=== PATIENT | female | born 1955 | race Two or more races ===

== ENCOUNTER 2017-01-10 15:05 | Inpatient (IN) | payer MEDICARE, OTHER ==
[~2017-01-10] VITALS: Ht 162.6 cm; Wt 120.3 kg
[~2017-01-10 15:05] MED LIST: /BACIOPOI OP; ACET65TA OR; AMLO10TA OR; CLON0.2T OR; COZA100T OR; PHEN 25 OR; VICO5TAB OR; ZANT150T OR
[2017-01-10] MEDS ORDERED: HYDR12.55 PO (15:25)
[2017-01-10] MEDS ORDERED: METO50TA7 PO ×2 (15:25→18:22)
[2017-01-10] MEDS ORDERED: ASPI325T PO ×2 (15:25→18:22)
[2017-01-10] MEDS ORDERED: FOLI1TAB4 PO ×2 (15:25→18:22)
[2017-01-10] MEDS ORDERED: ASPIRIN 81 MG CHEW TABLET PO ONE (15:30)
[2017-01-10 15:48] LABS: BASO % 0.5 % (0.0-1.0); EOS # 0.2 K/mm3 (0.0-0.50); LARGE UNSTAINED CELL # 0.1 K/mm3 (0.0-0.4); LARGE UNSTAINED CELL % 1.3 % (0.0-4.0); LYMPH # 1.7 K/mm3 (1.5-4.5); MEAN CORPUSCULAR HEMOGLOBIN 15.6 pg (27.0-33.0); MEAN CORPUSCULAR VOLUME 59.9 fl (80.0-96.0); MONO # 0.4 K/mm3 (0.0-0.8); MONO % 5.4 % (0.0-5.0); NEUTROPHILS # 4.9 K/mm3 (1.8-7.7); NEUTROPHILS % 66.8 % (36.0-66.0); PLATELET COUNT, AUTOMATED 251 k/mm3 (150-450); WHITE BLOOD COUNT 7.4 K/mm3 (4.0-10.0)
[2017-01-10 15:52] LABS: ADD MORPHOLOGY? YES; INR 1.13
--- NOTE | 2017-01-10 16:09 | REP ---
Clinical: Chest pain. Comparison: 07/15/2010. Findings: Cardiomegaly. Mild interstitial edema and pulmonary vascular congestion cannot be excluded and should be correlated clinically. Trace basilar atelectasis. No definite effusion. No pneumothorax. Skeletal structures intact. Impression: Cardiomegaly. Cannot exclude interstitial edema/pulmonary vascular congestion. Minimal basilar atelectasis. Signed by Drew Lobo MD 01/10/2017 04:01 P
[2017-01-10 16:12] LABS: ALBUMIN 2.9 GM/DL (3.2-5.2); ALBUMIN/GLOBULIN RATIO 0.88 (1.00-1.93); ALKALINE PHOSPHATASE 66 U/L (45-117); ALT/SGPT 36 U/L (12-78); ANION GAP 8 MEQ/L (8-16); AST/SGOT 15 U/L (15-37); BILIRUBIN,DIRECT 0.2 MG/DL (0.0-0.2); BILIRUBIN,TOTAL 0.5 MG/DL (0.2-1.0); BLOOD UREA NITROGEN 11 MG/DL (7-18); CALCIUM LEVEL 8.1 MG/DL (8.8-10.2); CARBON DIOXIDE LEVEL 28 MEQ/L (21-32); CHLORIDE LEVEL 104 MEQ/L (98-107); CREATININE FOR GFR 0.62 MG/DL (0.55-1.02); FREE T4 1.27 NG/DL (0.76-1.46); GLOMERULAR FILTRATION RATE > 60.0 (>45); GLUCOSE, FASTING 112 MG/DL (80-110); POTASSIUM SERUM 3.9 MEQ/L (3.5-5.1); SODIUM LEVEL 140 MEQ/L (136-145); TOTAL PROTEIN 6.2 GM/DL (6.4-8.2)
[2017-01-10 16:22] LABS: ANISOCYTOSIS 2+; HYPOCHROMASIA 3+; MICROCYTOSIS 3+
[2017-01-10 16:25] LABS: POLYCHROMASIA 1+
--- NOTE | 2017-01-10 16:34 | REP ---
Duplex extremity venous ultrasound: Bilateral lower extremities. History: Swelling and dyspnea and chest pain. Question DVT. Findings: The deep veins are anechoic and fully compressible from the groin to the popliteal fossa in the right and left lower extremity. Color flow imaging is homogeneous. Spectral Doppler interrogation demonstrates intact respiratory variation in flow and normal manual augmentation of flow. There is no evidence of deep vein thrombosis. Impression: Negative bilateral lower extremity duplex venous ultrasound. No evidence of deep vein thrombosis. Signed by Leonard Murrell MD 01/10/2017 04:26 P
[2017-01-10 16:48] LABS: FERRITIN 5 NG/ML (8-252); PERCENT SATURATION 4.1 % (13.2-45.0); TOTAL IRON BINDING CAPACITY 413 UG/DL (250-450)
[2017-01-10 16:58] LABS: FOLATE 17.7 NG/ML; VITAMIN B12 LEVEL 539 PG/ML
[2017-01-10] MEDS: FUROSEMIDE 40 MG/4 ML VIAL (J1940) IV SCH (18:14)
[2017-01-10] MEDS ORDERED: ALBUTEROL 90 MCG/ACT 8GM HFA INHALER INH PRN (18:15)
[2017-01-10] MEDS ORDERED: AMLO10TA2 PO (18:21)
[2017-01-10] MEDS ORDERED: CLON0.2T PO (18:22)
[2017-01-10] MEDS ORDERED: HYDR25TAB PO (18:22)
[2017-01-10] MEDS ORDERED: RANI150T PO (18:22)
[2017-01-10] MEDS ORDERED: LOSA100T36 PO (18:22)
[2017-01-10 18:34] LABS: RETIC HEMOGLOBIN CONTENT CHr 18.3 PG (24-36); RETICULOCYTE ABSOLUTE ADVIA212 65 x10(9)/L (17-77)
--- NOTE | 2017-01-10 20:43 | HPE ---
DATE OF ADMISSION: 01/10/2017 PRIMARY CARE PHYSICIAN: Dr. Marquez Dorsey ATTENDING PHYSICIAN: Dr. Jose, hospitalist group. CHIEF COMPLAINT: Severe anemia, exertional chest pain, high-output congestive heart failure. 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 She had checked her stool for occult blood through pharmacy programs and when it was negative felt she did not need her iron. She presented to the emergency room with dyspnea on exertion that has been getting gradually worse over a period of time. 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 She presented to the emergency room for evaluation and was found to have a hemoglobin of 5.6. She has been chronically anemic, and her last hemoglobin was 8.7 with iron deficient indices April of 2013. She has not had any endoscopy. She has a history of hypertension. She is intermittently compliant with her medications. I get the sense she has been taking them more recently since blood pressure is under loose control. Most recent systolic blood pressure has been in 160 range. She has evidence by exam, lab, and x-ray of congestive heart failure today, probably high-output heart failure. Most recent echocardiogram was from 6 years ago. She was on Dr. Petersen's service June 2010. Echocardiogram showed left ventricular hypertrophy (LVH), 75% ejection fraction, dilated left atrium, 46 mm. She denied increased right-sided pressure 6 years ago. She does have symptoms consistent with sleep apnea and snoring and excessive somnolence as well as a body habitus consistent with sleep apnea. PAST MEDICAL HISTORY: 1. Shows hypertension for many years. 2. History of gastroesophageal reflux disease (GERD). 3. Some bronchospastic disease, for which she uses inhaler periodically. SURGICAL HISTORY: 1. Ventral hernia repair. 2. Two sections. 3. Left knee meniscal tear. 4. Repair of deviated septum. 5. She had acute renal failure in the context of incarcerated hernia, for which she was admitted in June 2010. Underwent surgery by Dr. Gutiérrez. Was in the hospital for a couple of weeks at that time. MEDICATIONS: Inpatient medicines are: - amlodipine 10 mg daily - aspirin 325 mg daily - clonidine 0.2 mg twice a day - folic acid 1 mg daily - hydrochlorothiazide 12.5 mg daily - losartan 100 mg daily - metoprolol 50 mg daily - Zantac 150 mg as needed ALLERGIES: PENICILLIN. FAMILY HISTORY: Mother had hypertension, diabetes. Her brother of, it sounds, like cardiomyopathy. REVIEW OF SYSTEMS: As above. No epistaxis, rectal bleeding, urinary bleeding, vaginal bleeding. Denies palpitations, syncope. Has sleep apnea symptoms of excessive somnolence and loud snoring. PHYSICAL EXAMINATION: 159/77, pulse 58, respirations 18, 100% oxygen saturation on room air. GENERAL APPEARANCE: Lying in bed. No distress. Pupils equal, round, and reactive to light. Tympanic membranes and oropharynx benign. NECK: No masses. Thyroid non-palpable. Thick neck. Narrow airway. LUNGS: Rales, both bases. HEART: Regular rate and rhythm with a 1/6 systolic ejection murmur. Bradycardic. ABDOMEN: Soft, nontender. No masses. Stool heme negative. EXTREMITIES: Showed 1-2+ peripheral edema. No clubbing or cyanosis. Moves arms and legs with equal strength. LABORATORY DATA: Hemoglobin 5.6, MCV of 59. RDW is widened. Platelets 251, white count 7.4. Sodium 140, potassium 3.9, BUN 11, creatinine 0.6, glucose 112. Ferritin low at 5. Percent saturation low at 4.1. Troponin was low. BNP mildly elevated at 232. Albumin low 2.9. B12, folate, TSH, free T4 all normal. Telemetry in the emergency room showed nonsustained ventricular tachycardia of approximately 10 beats, asymptomatic. IMPRESSION: Severe anemia, iron deficient. Looks like very noncompliant with supplemental iron and presumed occult blood loss. PLAN: 1. She will admitted to the progressive care unit (PCU), transfused 2 units packed red blood cells. Repeat complete blood count (CBC) in the morning. She will probably need more blood in the morning. I strongly encouraged her to pursue upper and lower endoscopy either during this admission or as an outpatient for presumed gastrointestinal or chronic gastrointestinal (GI) iron loss. 2. High-output congestive heart failure, probably from the anemia. Echocardiogram has been ordered. Intravenous (IV) Lasix on sliding scale to maintain a net diuresis of 1200 mL per day. She looks like she has about 3 or 4 liters net that she needs to diurese. Daily labs have been ordered. Magnesium has been ordered tonight. Follow by magnesium tomorrow as well. 3. Nonsustained ventricular tachycardia. She is bradycardic, which is unusual considering the degree of her anemia. Repeat cardiac enzymes have been ordered. Telemetry has been ordered. Repeat EKG in the morning. Followup magnesium has been ordered. 4. Probably sleep apnea. Nocturnal oximetry ordered. Outpatient workup advised. Check right-sided pressures pending echocardiogram. 5. Possible diabetes. She has "borderline diabetes." Has morbid obesity. Hemoglobin A1c ordered. 6. Hypertension, noncompliant with her usual medications. She is a bit bradycardic. Need to be cautious with a beta martínez dosage as well as the clonidine, which can induce bradycardia. She has a relatively high dose angiotensin receptor martínez (ARB) medication. Thiazide is held in order to give her intravenous Lasix. Consideration given as an outpatient to referral to hypertension specialist. 7. Iron deficiency. Oral iron has been ordered with vitamin C to enhance absorption. I strongly encourage her to pursue upper and lower endoscopy to look for source of GI blood loss. 8. Chest pain, probably from severe anemia, unlikely ischemic heart disease. Enzymes have been ordered. Echocardiogram has been ordered. May benefit from outpatient stress test.
[2017-01-10 20:50] VITALS: BP 198/97
[2017-01-10] MEDS: METOPROLOL TART 25 MG TABLET PO SCH (21:00)
[2017-01-10 21:05] VITALS: BP 178/73
[2017-01-10] MEDS: cloNIDine 0.1 MG TAB PO SCH (21:39)
[2017-01-10] MEDS: ASCORBIC ACID 500 MG TAB PO SCH (21:39)
[2017-01-10] MEDS: FERROUS SULFATE 325MG TAB PO SCH (21:39)
[2017-01-10 21:50] VITALS: BP 176/80
[2017-01-10 22:50] VITALS: BP 174/82
[2017-01-10 23:49] VITALS: BP 168/80
[2017-01-11] VITALS (13 sets, daily range): BP systolic 142–196; BP diastolic 74–104
[2017-01-11] MEDS: FUROSEMIDE 40 MG/4 ML VIAL (J1940) IV SCH ×4 (00:17→18:00)
--- NOTE | 2017-01-11 07:50 | ECGEPIP ---
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
[2017-01-11 08:17] LABS: MEAN CORPUSCULAR HEMOGLOBIN 18.1 pg (27.0-33.0); MEAN CORPUSCULAR HGB CONC 28.7 g/dl (32.0-36.5); RED CELL DISTRIBUTION WIDTH 21.1 % (11.5-14.5); WHITE BLOOD COUNT 6.8 K/mm3 (4.0-10.0)
[2017-01-11 08:31] LABS: ALBUMIN/GLOBULIN RATIO 0.94 (1.00-1.93); ALKALINE PHOSPHATASE 70 U/L (45-117); ALT/SGPT 32 U/L (12-78); ANION GAP 8 MEQ/L (8-16); AST/SGOT 13 U/L (15-37); BLOOD UREA NITROGEN 10 MG/DL (7-18); CALCIUM LEVEL 8.9 MG/DL (8.8-10.2); CARBON DIOXIDE LEVEL 33 MEQ/L (21-32); CHLORIDE LEVEL 103 MEQ/L (98-107); CREATININE FOR GFR 0.69 MG/DL (0.55-1.02); GLOMERULAR FILTRATION RATE > 60.0 (>45); GLUCOSE, FASTING 124 MG/DL (80-110); POTASSIUM SERUM 3.5 MEQ/L (3.5-5.1); SODIUM LEVEL 144 MEQ/L (136-145); TOTAL PROTEIN 6.2 GM/DL (6.4-8.2)
[2017-01-11 08:33] LABS: ANION GAP 7 MEQ/L (8-16); BLOOD UREA NITROGEN 10 MG/DL (7-18); CALCIUM LEVEL 8.3 MG/DL (8.8-10.2); CARBON DIOXIDE LEVEL 33 MEQ/L (21-32); CHLORIDE LEVEL 102 MEQ/L (98-107); GLOMERULAR FILTRATION RATE > 60.0 (>45); GLUCOSE, FASTING 122 MG/DL (80-110); MAGNESIUM LEVEL 1.7 MG/DL (1.8-2.4); POTASSIUM SERUM 3.3 MEQ/L (3.5-5.1); SODIUM LEVEL 142 MEQ/L (136-145)
[2017-01-11] MEDS: FOLIC ACID 1 MG TAB PO SCH (08:44)
[2017-01-11] MEDS: FERROUS SULFATE 325MG TAB PO SCH ×2 (08:45→20:02)
[2017-01-11] MEDS: cloNIDine 0.1 MG TAB PO SCH ×2 (08:45→20:02)
[2017-01-11] MEDS: SENOKOT S TAB PO SCH ×2 (08:45→20:03)
[2017-01-11] MEDS: ASCORBIC ACID 500 MG TAB PO SCH ×2 (08:46→20:40)
[2017-01-11] MEDS: LOSARTAN 50 MG TAB PO SCH (08:46)
[2017-01-11] MEDS: ASPIRIN ENTERIC 325 MG TAB PO SCH (08:46)
[2017-01-11] MEDS ORDERED: POTASSIUM CHLORIDE 10 MEQ SR TABLET PO ONE (09:00)
[2017-01-11] MEDS ORDERED: MAG SULF 1GM/100ML (MAG RUN) 1 GM in APPROPRIATE DILUENT 1 EA IV ONE (09:00)
[2017-01-11] MEDS ORDERED: amLODIPine 10 MG TAB PO SCH (09:00)
[2017-01-11] MEDS: METOPROLOL TART 25 MG TABLET PO SCH ×2 (09:00→20:03)
[2017-01-11] MEDS ORDERED: ENOXAPARIN 40 MG/0.4 ML SYRINGE (J1650) SC SCH (09:00)
[2017-01-11 09:03] LABS: CHOLESTEROL LEVEL 112 MG/DL (<200); TRIGLYCERIDES LEVEL 97 MG/DL (<150)
[2017-01-11] MEDS ORDERED: hydrALAZINE INJ 20 MG/ML VIAL IV ONE (09:15)
[2017-01-11 09:19] LABS: REASON FOR REVIEW COMPREHENSIVE REVIEW
--- NOTE | 2017-01-11 12:56 | ECGEPIP ---
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
--- NOTE | 2017-01-11 14:34 | IPNPDOC ---
Date Seen The patient was seen on 01/11/17. Progress Note SUBJECTIVE: Patient is a 61-year-old female with anemia and chest pain. She is evaluated at bedside this morning. She denies hematemesis, hemoptysis, melena, hematochezia. She reports bleeding from her teeth secondary to poor dentition, but possibly not enough to cause a hemoglobin of 5.6. Complains of some low back pain which she attributes to laying on the ED stretcher. Will order a heating pad. She does not appear to complain of any further shortness of breath and is able to communicate in full sentences. OBJECTIVE PHYSICAL EXAMINATION: VITAL SIGNS: Please see below. GENERAL: Obese female, well nourished, well developed, appears stated age, no acute distress HEENT: Atraumatic, normocephalic, PERRL, EOMI, oral mucosa appears pink and moist, dentition in poor condition, nasal septum appears midline, nares are patent CARDIOVASCULAR: Regular rate and rhythm, normal S1 and S2, no murmur, rub, click RESPIRATORY: Clear to auscultation bilaterally, adequate inspiratory and expiratory airway excursion, no wheeze, rhonchi, crackles ABDOMINAL: Obese, soft, non-tender, non-distended, bowel sounds appreciated EXTREMITIES: +1 pitting edema appreciated in the bilateral lower extremities, peripheral pulses appreciated, equal, symmetrical, +2/4 NEUROLOGICAL: CN II-XII grossly intact PSYCHOLOGICAL: Alert and conversant, pleasant LABORATORY DATA: Please see below. MICROBIOLOGY: Please see below. DVT prophylaxis ordered?: TEDs, sequentials, knee high compression ASSESSMENT AND PLAN: This is a 61-year-old female with symptomatic anemia. PROBLEMS: 1. Symptomatic anemia: No current source of bleeding identified. Stool for occult blood has been ordered. Transfused 4 units of PRBC. Iron studies indicate iron deficiency anemia. Ferrous sulfate has been added to patient's medication regimen. Consulted general surgery. Peripheral smear indicates "post-transfusion sample. Still shows severe iron-deficiency anemia with increase reticulocytes count and rare nucleated RBCs, worrisome for occult blood loss as a cause of her anemia. WBC morphology is within normal limits. Clinical correlation and work up is necessary." 2. Uncontrolled hypertension: Patient on Amlodipine 10mg twice a day, Hydralazine 50mg three times a day, and Losartan 100mg daily. Obtaining renal ultrasound. 3. Bradycardia: Patient on Metoprolol and Clonidine for blood pressure. Medications have hold parameters in place for a SBP < 110 and/or HR < 60. EKG shows bradycardia. 4. Hypokalemia: Replenishment provided. 5. Hypomagnesemia: Replenishment provided. 6. Chest pain: Cardiac markers have thus far been negative. 7. Congestive heart failure: BNP within optimal range. Obtaining echocardiogram. Administering Lasix for a net negative balance of 1200cc/day. 8. Probable sleep apnea: Nocturnal pulse oximetry ordered. Could consider out- patient follow-up. Echocardiogram pending. 9. Possible diabetes: Ac1 6.1. DISPOSITION: Admit to the PCU. Obtain renal ultrasound. Obtaining stool for occult blood. Consider general surgery consult for evaluation of symptomatic anemia.. VS, I&O, 24H, Fishbone Vital Signs/I&O Vital Signs Date Time Temp Pulse Resp B/P (MAP) Pulse Ox O2 Delivery O2 Flow Rate FiO2 01/11/17 11:09 196/96 (129) 01/11/17 09:00 55 01/11/17 06:00 98.1 18 95 Room Air I&O- Last 24 Hours up to 6 AM 01/11/17 06:00 Intake Total 1775 ml Output Total 3200 ml Balance -1425 ml Laboratory Data 24H LABS Laboratory Tests 2 01/10/17 15:37: White Blood Count 7.4, Red Blood Count 3.59L, Hemoglobin 5.6*L, Hematocrit 21.5L , Mean Corpuscular Volume 59.9L, Mean Corpuscular Hemoglobin 15.6L, Mean Corpuscular Hemoglobin Concent 26.0L, Red Cell Distribution Width 18.0H, Platelet Count 251, Neutrophils (%) (Auto) 66.8H, Lymphocytes (%) (Auto) 23.0L, Monocytes (%) (Auto) 5.4H, Eosinophils (%) (Auto) 3.0, Basophils (%) (Auto) 0.5 , Neutrophils # (Auto) 4.9, Lymphocytes # (Auto) 1.7, Monocytes # (Auto) 0.4, Eosinophils # (Auto) 0.2, Basophils # (Auto) 0.0, Large Unclassified Cells % 1.3 , Large Unclassified Cells # 0.1, Platelet Estimate NORMAL, Polychromasia 1+, Hypochromasia 3+, Anisocytosis 2+, Microcytosis 3+, Macrocytosis 1+, Absolute Reticulocyte Count 65, Percent Reticulocyte Count 1.80H, Reticulocyte Hgb Content (CHr) 18.3L, Prothrombin Time 14.7H, Prothromb Time International Ratio 1.13, Anion Gap 8, Glomerular Filtration Rate > 60.0, Calcium Level 8.1L, Iron Level 17L, Total Iron Binding Capacity 413, Transferrin % Saturation 4.1L, Ferritin 5L, Aspartate Amino Transf (AST/SGOT) 15, Alanine Aminotransferase (ALT /SGPT) 36, Alkaline Phosphatase 66, Total Bilirubin 0.5, Direct Bilirubin 0.2, Total Creatine Kinase 54, Creatine Kinase MB 1.9, Creatine Kinase MB Relative Index 3.51, Troponin I 0.02, B-Type Natriuretic Peptide 232H, Total Protein 6.2L , Albumin 2.9L, Albumin/Globulin Ratio 0.88L, Vitamin B12 Level 539, Folate 17.7 , Thyroid Stimulating Hormone (TSH) 3.490, Free Thyroxine 1.27 01/10/17 18:15: Estimated Mean Plasma Glucose 128H, Hemoglobin A1c 6.1 01/10/17 23:53: Total Creatine Kinase 50, Creatine Kinase MB 1.6, Creatine Kinase MB Relative Index 3.20, Troponin I < 0.02 01/11/17 07:52: Anion Gap 8, Glomerular Filtration Rate > 60.0, Calcium Level 8.9, Aspartate Amino Transf (AST/SGOT) 13L, Alanine Aminotransferase (ALT/SGPT) 32, Alkaline Phosphatase 70, Total Bilirubin 1.0#, Total Creatine Kinase 48, Creatine Kinase MB 1.2, Creatine Kinase MB Relative Index 2.50, Troponin I 0.02, Total Protein 6.2L, Albumin 3.0L, Albumin/Globulin Ratio 0.94L, Differential Slide Review Report, Differential Pathologist's Review COMPREHENSIVE REVIEW, Peripheral Blood Smear Path Consult PERIPHERAL SMEAR, Blood Urea Nitrogen 10, Creatinine 0.69, Sodium Level 144, Potassium Level 3.5, Chloride Level 103, Carbon Dioxide Level 33H, Magnesium Level 1.7L, Triglycerides Level 97, LDL Cholesterol 62.6, Total Cholesterol 112, Non-HDL Cholesterol (LDL + VLDL) 82, Total HDL Cholesterol 30L, Cholesterol/HDL Ratio 3.733 01/11/17 12:09: Total Creatine Kinase 52, Creatine Kinase MB 1.2, Creatine Kinase MB Relative Index 2.30, Troponin I 0.02 CBC/BMP Laboratory Tests 01/10/17 15:37 Red Blood Count 3.59 L, Mean Corpuscular Volume 59.9 L, Mean Corpuscular Hemoglobin 15.6 L, Mean Corpuscular Hemoglobin Concent 26.0 L, Red Cell Distribution Width 18.0 H, Neutrophils (%) (Auto) 66.8 H, Lymphocytes (%) (Auto ) 23.0 L, Monocytes (%) (Auto) 5.4 H, Eosinophils (%) (Auto) 3.0, Basophils (%) (Auto) 0.5, Neutrophils # (Auto) 4.9, Lymphocytes # (Auto) 1.7, Monocytes # ( Auto) 0.4, Eosinophils # (Auto) 0.2, Basophils # (Auto) 0.0 01/11/17 07:52 Red Blood Count 4.05, Mean Corpuscular Volume 63.0 L, Mean Corpuscular Hemoglobin 18.1 L, Mean Corpuscular Hemoglobin Concent 28.7 L, Red Cell Distribution Width 21.1 H, Calcium Level 8.9, Aspartate Amino Transf (AST/SGOT) 13 L, Alanine Aminotransferase (ALT/SGPT) 32, Alkaline Phosphatase 70, Total Bilirubin 1.0 #, Total Protein 6.2 L, Albumin 3.0 L, Total Creatine Kinase 48 01/11/17 12:09 GME ATTESTATION GME ATTESTATION My preceptor for this patient encounter was physically present in the building during the encounter and was fully available. As needed, all aspects of the patient interview, examination, medical decision making process, and medical care plan development were reviewed and approved by the preceptor. Preceptor is aware and concurs with the plan as stated in the body of this note and will attest to such by his/her cosignature. ATTENDING NOTE I have both independently examined this patient as well as reviewed the note. I have discussed in detail with the resident the findings and plan of treatment as documented in the residents note. I will continue to follow the patient and offer further guidance to the patients care as necessary during this hospital stay. MARCELINO Velez MD Jan 11, 2017 14:34 DAHLIA MYERS MD Jan 28, 2017 18:47
[2017-01-11] MEDS: **hydrALAZINE** 50 MG TAB PO SCH ×2 (15:57→20:04)
[2017-01-11] MEDS ORDERED: **hydrALAZINE** 50 MG TAB PO SCH (16:00)
[2017-01-11] MEDS: amLODIPine 10 MG TAB PO SCH (20:03)
[2017-01-11] MEDS: ACETAMINOPHEN 325 MG TAB PO PRN (20:40)
[2017-01-11] MEDS ORDERED: CYCLOBENZAPRINE 5MG TABLET PO ONE (21:00)
[2017-01-11] MEDS ORDERED: FAMOTIDINE 20 MG TAB PO PRN (21:30)
[2017-01-12 00:20] VITALS: BP 182/90
[2017-01-12] MEDS: FUROSEMIDE 40 MG/4 ML VIAL (J1940) IV SCH ×4 (00:45→18:16)
[2017-01-12] MEDS: ACETAMINOPHEN 325 MG TAB PO PRN ×2 (05:29→21:19)
[2017-01-12 05:30] LABS: MEAN CORPUSCULAR HEMOGLOBIN 19.8 pg (27.0-33.0); MEAN CORPUSCULAR HGB CONC 29.4 g/dl (32.0-36.5); MEAN CORPUSCULAR VOLUME 67.3 fl (80.0-96.0); RED CELL DISTRIBUTION WIDTH 23.4 % (11.5-14.5); WHITE BLOOD COUNT 9.2 K/mm3 (4.0-10.0)
[2017-01-12 05:52] LABS: ANION GAP 11 MEQ/L (8-16); BLOOD UREA NITROGEN 10 MG/DL (7-18); CALCIUM LEVEL 8.9 MG/DL (8.8-10.2); CARBON DIOXIDE LEVEL 31 MEQ/L (21-32); CHLORIDE LEVEL 104 MEQ/L (98-107); GLOMERULAR FILTRATION RATE > 60.0 (>45); GLUCOSE, FASTING 115 MG/DL (80-110); POTASSIUM SERUM 3.4 MEQ/L (3.5-5.1); SODIUM LEVEL 146 MEQ/L (136-145)
[2017-01-12 06:03] VITALS: BP 188/92
[2017-01-12] MEDS: **hydrALAZINE** 50 MG TAB PO SCH ×3 (06:14→21:19)
[2017-01-12] MEDS ORDERED: POTASSIUM CHLORIDE 10 MEQ SR TABLET PO ONE (06:45)
[2017-01-12 07:40] LABS: MAGNESIUM LEVEL 1.9 MG/DL (1.8-2.4)
[2017-01-12 09:00] VITALS: BP 184/84
[2017-01-12] MEDS: LOSARTAN 50 MG TAB PO SCH (09:45)
[2017-01-12] MEDS: ASPIRIN ENTERIC 325 MG TAB PO SCH (09:45)
[2017-01-12] MEDS: ISOSORBIDE DIN. (ISORDIL) 30 MG TAB PO SCH ×2 (09:45→17:30)
[2017-01-12] MEDS: amLODIPine 10 MG TAB PO SCH ×2 (09:45→21:18)
[2017-01-12] MEDS: FERROUS SULFATE 325MG TAB PO SCH ×2 (09:46→21:20)
[2017-01-12] MEDS: cloNIDine 0.1 MG TAB PO SCH ×2 (09:46→21:22)
[2017-01-12] MEDS: ASCORBIC ACID 500 MG TAB PO SCH ×2 (09:46→21:20)
[2017-01-12] MEDS: FOLIC ACID 1 MG TAB PO SCH (09:46)
[2017-01-12] MEDS: METOPROLOL TART 25 MG TABLET PO SCH ×2 (09:46→21:21)
[2017-01-12] MEDS: SENOKOT S TAB PO SCH ×2 (09:47→21:20)
--- NOTE | 2017-01-12 10:35 | IPNPDOC ---
Date Seen The patient was seen on 01/12/17. Progress Note SUBJECTIVE: Patient is a 61-year-old female with anemia and chest pain. Patient is evaluated at bedside this morning. She had just returned from her renal ultrasound. She continues to denies any rico blood loss. Admits to improving chest pain. Patient will be going for a possible EGD and colonoscopy with general surgery on Saturday. Patient is not looking forward to the preparation for those procedures. Continues to experience low back muscle spasms. Reports that the one-time dose of Flexeril helped alleviate the spasm. Have placed a PRN order for Flexeril 5mg every 6 hours. Patient's blood pressure has been somewhat difficult to control. She denies difficulties at home. Have added Isosorbide dinitrate 30mg every 8 hours. OBJECTIVE PHYSICAL EXAMINATION: VITAL SIGNS: Please see below. GENERAL: Morbidly obese female, well nourished, well developed, appears stated age, no acute distress HEENT: Atraumatic, normocephalic, PERRL, EOMI, oral mucosa appears pink and moist, nasal septum appears midline, nares are patent CARDIOVASCULAR: Regular rate and rhythm, normal S1 and S2, no murmur, rub, click , no reproducible pain with anterior chest wall palpation RESPIRATORY: Clear to auscultation bilaterally, adequate inspiratory and expiratory airway excursion, no wheeze, rhonchi, crackles ABDOMINAL: Obese, soft, non-tender, non-distended, bowel sounds appreciated EXTREMITIES: +1 pitting edema appreciated in bilateral lower extremities midway up the leg, peripheral pulses appreciated bilaterally, equal, symmetrical, +2/4 NEUROLOGICAL: CN II-XII grossly intact PSYCHOLOGICAL: Alert, conversant, pleasant LABORATORY DATA: Please see below. MICROBIOLOGY: Please see below. DVT prophylaxis ordered?: TEDs, sequentials, knee high compression. ASSESSMENT AND PLAN: This is a 61-year-old female with chest pain and anemia. PROBLEMS: 1. Acute low back muscle spasms: Attained symptomatic relief with Flexeril 5mg. Have initiated a PRN order. 2. Symptomatic anemia: H/H has improved since transfusing 4 units of PRBC. Stool is positive for occult blood. No rico blood loss appreciated by patient. Consulted general surgery. Possible EGD and colonoscopy on Saturday. Remains on Ferrous Sulfate for iron deficiency anemia. 3. Chest pain: Improving. Possibly related to symptomatic anemia. Cardiac markers are negative. 4. Hypokalemia: Replenished. Obtained magnesium level which was within optimal range. 5. Uncontrolled hypertension: Patient remains on Clonidine and Metoprolol with hold parameters of SBP < 110 and/or HR < 60. Patient is also on Amlodipine 10mg twice a day, Hydralazine 50mg three times a day, Losartan 100mg daily, and have initiated Isosorbide dinitrate 30mg every 8 hours. Hopeful to achieve a more controlled blood pressure with the regimen. Will continue to monitor. 6. Congestive heart failure: Remains on Lasix 40mg every six hours for a net negative balance of 1200cc/day. Echocardiogram is pending. DISPOSITION: Control blood pressure. Consulted general surgery for possible EGD and colonoscopy on Saturday. Anemia has improved. VS, I&O, [facility] Sign[facility]/I&O Vital Signs Date Time Temp Pulse Resp B/P (MAP) Pulse Ox O2 Delivery O2 Flow Rate FiO2 01/12/17 09:46 184/84 01/12/17 09:46 66 01/12/17 09:00 99.1 18 94 Room Air I&O- Last 24 Hours up to 6 AM 01/12/17 06:00 Intake Total 1520 ml Output Total 5475 ml Balance -3955 ml Laboratory Data 24H LABS Laboratory Tests 2 01/11/17 12:09: Total Creatine Kinase 52, Creatine Kinase MB 1.2, Creatine Kinase MB Relative Index 2.30, Troponin I 0.02 01/11/17 21:00: Total Creatine Kinase 51, Creatine Kinase MB 1.2, Creatine Kinase MB Relative Index 2.35, Troponin I 0.02 01/12/17 04:48: Anion Gap 11, Glomerular Filtration Rate > 60.0, Blood Urea Nitrogen 10, Creatinine 0.60, Sodium Level 146H, Potassium Level 3.4L, Chloride Level 104, Carbon Dioxide Level 31, Calcium Level 8.9, Magnesium Level 1.9 CBC/BMP Laboratory Tests 01/11/17 12:09 01/11/17 16:43 01/12/17 04:48 Red Blood Count 4.80, Mean Corpuscular Volume 67.3 L, Mean Corpuscular Hemoglobin 19.8 L, Mean Corpuscular Hemoglobin Concent 29.4 L, Red Cell Distribution Width 23.4 H, Calcium Level 8.9 Microbiology Microbiology 01/11/17 Stool Occult Blood (RADHA) - Final, Complete GME ATTESTATION GME ATTESTATION My preceptor for this patient encounter was physically present in the building during the encounter and was fully available. As needed, all aspects of the patient interview, examination, medical decision making process, and medical care plan development were reviewed and approved by the preceptor. Preceptor is aware and concurs with the plan as stated in the body of this note and will attest to such by his/her cosignature. ATTENDING NOTE I have both independently examined this patient as well as reviewed the note. I have discussed in detail with the resident the findings and plan of treatment as documented in the residents note. I will continue to follow the patient and offer further guidance to the patients care as necessary during this hospital stay. MARCELINO Velez MD-I Jan 12, 2017 10:34 DAHLIA MYERS MD Jan 28, 2017 18:49
[2017-01-12 12:00] VITALS: BP 178/80
--- NOTE | 2017-01-12 12:30 | REP ---
Clinical: Hypertension. Technique: Lovell scale and color Doppler evaluation of the kidneys and renal vasculature using curved array transducer. Findings: The bilateral kidneys are relatively normal in reniform shape, size and echogenicity and without nephrolithiasis, perinephric fluid or mass lesion. Right kidney measures 12.4 x 5.3 x 6.2 cm and includes 1.6 x 1.1 x 1.7 cm parapelvic cyst. Left kidney measures 12.3 x 5.3 x 7.1 cm with mild hydronephrosis suggested and possible parapelvic cyst. Bladder is incompletely distended and grossly normal by current evaluation. Color Doppler evaluation of the renal vasculature demonstrates normal arterial wave patterns, velocities, renal aortic ratios with minimally elevated resistive indices and acceleration times of the intra renal arteries. Renal vein is patent. Right Kidney: Peak arterial velocity: 81.1 cm/sec . Renal aortic ratio: 1.1 . Resistive indices: 0.77 - 0.81 . Acceleration times: 0.095 - 0.12 . Left kidney: Peak arterial velocity: 105.2 cm/sec . Renal aortic ratio: 1.5 . Resistive indices: 0.73 - 0.85 . Acceleration times: 0.066 - 0.13 . Impression: 1. Kidneys demonstrate a 1.7 cm right renal cyst and suspected mild left renal hydronephrosis. 2. No definite, direct evidence for renal arterial stenosis. Elevation of the intrarenal resistive indices and acceleration times are nonspecific findings which may warrant further investigation including nuclear medicine renal function testing. Signed by Drew Lobo MD 01/12/2017 12:22 P
[2017-01-12 16:00] VITALS: BP 138/80
[2017-01-12 20:39] VITALS: BP 162/84
[2017-01-13] VITALS (7 sets, daily range): BP systolic 121–180; BP diastolic 60–102
[2017-01-13] MEDS: FUROSEMIDE 40 MG/4 ML VIAL (J1940) IV SCH ×4 (00:21→16:53)
[2017-01-13] MEDS: ACETAMINOPHEN 325 MG TAB PO PRN ×2 (01:34→05:43)
[2017-01-13] MEDS: ISOSORBIDE DIN. (ISORDIL) 30 MG TAB PO SCH ×3 (01:34→09:17)
[2017-01-13] MEDS: CYCLOBENZAPRINE 5MG TABLET PO PRN ×2 (05:41→22:04)
[2017-01-13 05:44] LABS: MEAN CORPUSCULAR HEMOGLOBIN 20.5 pg (27.0-33.0); MEAN CORPUSCULAR HGB CONC 30.6 g/dl (32.0-36.5); MEAN CORPUSCULAR VOLUME 66.9 fl (80.0-96.0); RED CELL DISTRIBUTION WIDTH 24.7 % (11.5-14.5); WHITE BLOOD COUNT 10.4 K/mm3 (4.0-10.0)
[2017-01-13 05:45] LABS: ANION GAP 8 MEQ/L (8-16); BLOOD UREA NITROGEN 13 MG/DL (7-18); CALCIUM LEVEL 8.9 MG/DL (8.8-10.2); CARBON DIOXIDE LEVEL 32 MEQ/L (21-32); CHLORIDE LEVEL 102 MEQ/L (98-107); CREATININE FOR GFR 0.61 MG/DL (0.55-1.02); GLOMERULAR FILTRATION RATE > 60.0 (>45); GLUCOSE, FASTING 132 MG/DL (80-110); POTASSIUM SERUM 3.5 MEQ/L (3.5-5.1); SODIUM LEVEL 142 MEQ/L (136-145)
[2017-01-13] MEDS ORDERED: POTASSIUM CHLORIDE 10 MEQ SR TABLET PO ONE (07:45)
[2017-01-13] MEDS: FOLIC ACID 1 MG TAB PO SCH (09:07)
[2017-01-13] MEDS: ASPIRIN ENTERIC 325 MG TAB PO SCH (09:07)
[2017-01-13] MEDS: cloNIDine 0.1 MG TAB PO SCH (09:07)
[2017-01-13] MEDS: amLODIPine 10 MG TAB PO SCH ×2 (09:08→20:23)
[2017-01-13] MEDS: LOSARTAN 50 MG TAB PO SCH (09:08)
[2017-01-13] MEDS: **hydrALAZINE** 50 MG TAB PO SCH ×3 (09:09→20:25)
[2017-01-13] MEDS: METOPROLOL TART 25 MG TABLET PO SCH ×2 (09:09→20:25)
[2017-01-13] MEDS: FERROUS SULFATE 325MG TAB PO SCH ×2 (09:09→20:24)
[2017-01-13] MEDS: SENOKOT S TAB PO SCH ×2 (09:09→20:26)
[2017-01-13] MEDS: ASCORBIC ACID 500 MG TAB PO SCH ×2 (09:09→20:21)
[2017-01-13] MEDS: ACETAMINOPHEN TAB 650MG DOSE (2X325MG) PO PRN ×2 (12:05→22:04)
--- NOTE | 2017-01-13 14:57 | ECHO ---
DATE: 01/13/2017 REFERRING PHYSICIAN: Dr. Lowell Mcclelland Study was performed 01/13/2017 for indication edema. Patient measures 63 inches and weighs 279 pounds. DIMENSIONS: IVS 1.5 LV 5.4 LVPW 1.4 LA 5.7 Aorta 3.9 Ascending aorta 3.7 RV 3.6 FINDINGS: The study is of rather difficult technical quality corresponding to patient's body habitus. Left ventricle is of normal size and systolic function, estimated ejection fraction (EF) 65-70%. Moderate left ventricle hypertrophy is present. Right ventricle does not appear enlarged but was poorly visualized. Left atrium is severely enlarged. Right atrium was poorly seen. Aortic valve is sclerotic, but it has preserved mobility. There are also mild degenerative abnormalities of mitral valve with mitral annular calcifications, but mobility of leaflet is preserved. Tricuspid and pulmonic valves appear grossly normal, but the visualization was poor. No pericardial effusion is noted. Inferior vena cava is normal size and appropriately collapses with respiration. Aortic root is normal. Aortic arch also appears normal. Abdominal aorta was not well seen. Doppler interrogation of aortic valve reveals no stenosis or insufficiency. There is also no significant mitral and tricuspid stenosis or insufficiency. Trace pulmonic insufficiency is seen. Mitral inflow pattern and tissue Doppler imaging of mitral annulus reveal grade 1 diastolic dysfunction. E prime velocities are 6.0 and 10.3 cm/s in septal and lateral mitral annulus, respectively. CONCLUSIONS: 1. Study is of fair technical quality corresponding to patient's body habitus. 2. Normal left ventricular (LV) size with moderate left ventricular hypertrophy (LVH) and preserved LV systolic function. Grade 1 diastolic dysfunction. 3. No hemodynamically significant valvular disease. 4. Probably normal central venous pressure. 5. Unable to estimate pulmonary artery pressure. COMMENTS: Subacute bacterial endocarditis (SBE) prophylaxis not recommended. Overall study most consistent with hypertensive heart disease. MTDD
--- NOTE | 2017-01-13 15:19 | IPN ---
DATE OF SERVICE: 01/13/2017 Patient reported headache after started on Isordil for blood pressure. Denies any chest pain, pressure, discomfort, fevers or chills, vision change, hearing change, nausea, vomiting. VITAL SIGNS: Temperature 98, pulse 61, respirations 17, blood pressure 154/82, pulse oximetry 97% on room air. LABORATORY: WBC 10.4, hemoglobin and hematocrit (H and H) 9.4/30.6, platelets 248. Chemistry; Sodium 142, potassium 3.5, chloride 102, bicarbonate 32, BUN 13, creatinine 0.61. GENERAL: Patient alert and oriented times three, morbidly obese, in no acute distress. HEENT: Normocephalic, atraumatic. Pupils equal, round, and reactive. CARDIAC: Regular rate, rhythm. Normal S1, S2. ABDOMEN: Soft and nontender. PULMONARY: Clear. Distant breath sounds. No wheeze, rales, or rhonchi. ABDOMEN: Is obese, soft, nontender. Positive bowel sounds. EXTREMITIES: Trace edema bilateral lower extremities. ASSESSMENT AND PLAN: This is a 61-year-old female patient with underlying medical history of chronic iron-deficiency anemia, hypertension, poorly controlled, bronchospastic disease, admitted with symptomatic anemia, chest pain, iron-deficiency anemia, fecal occult positive. PROBLEMS: 1. Symptomatic anemia with iron deficiency. Status post 4 units packed red blood cells (PRBCs) transfusion. Fecal occult positive. Last colonoscopy [address] Montague has been consulted for esophagogastroduodenoscopy (EGD)/colonoscopy on Saturday. Iron supplementation. 2. Musculoskeletal low back pain. Improved. Flexeril has been given. 3. Hypokalemia. Supplemented. Continue to monitor. 4. Uncontrolled hypertension. Clonidine 0.2 mg by mouth twice a day. Lopressor with holding parameter. Norvasc, hydralazine, losartan have been given. Isosorbide dinitrate has been discontinued given headache. Will monitor blood pressure. 4. Congestive heart failure. Continue Lasix for diuresis. 5. Deep venous thrombosis (DVT) prophylaxis. Sequential compression device. Encourage ambulation. Avoid pharmacological agents for anticoagulation given patient is fecal occult positive pending esophagogastroduodenoscopy (EGD)/colonoscopy. DISPOSITION: Pending EGD/colonoscopy. Encourage ambulation. Will give physical therapy.
[2017-01-13] MEDS ORDERED: MAGNESIUM CITRATE 300 ML BTL PO ONE (17:00)
[2017-01-13] MEDS ORDERED: GOLYTELY SOLN 4000 ML BTL PO ONE (20:00)
[2017-01-13] MEDS: cloNIDine 0.2 MG TAB PO SCH (20:23)
[2017-01-14] MEDS: FUROSEMIDE 40 MG/4 ML VIAL (J1940) IV SCH ×4 (00:42→17:29)
[2017-01-14] MEDS ORDERED: GOLYTELY SOLN 4000 ML BTL PO ONE (05:00)
[2017-01-14 05:27] LABS: MEAN CORPUSCULAR HEMOGLOBIN 20.2 pg (27.0-33.0); MEAN CORPUSCULAR HGB CONC 29.2 g/dl (32.0-36.5); MEAN CORPUSCULAR VOLUME 69.2 fl (80.0-96.0); WHITE BLOOD COUNT 8.7 K/mm3 (4.0-10.0)
[2017-01-14 05:33] VITALS: BP 202/104
[2017-01-14 05:47] LABS: ANION GAP 5 MEQ/L (8-16); BLOOD UREA NITROGEN 7 MG/DL (7-18); CALCIUM LEVEL 8.9 MG/DL (8.8-10.2); CARBON DIOXIDE LEVEL 35 MEQ/L (21-32); CHLORIDE LEVEL 101 MEQ/L (98-107); CREATININE FOR GFR 0.61 MG/DL (0.55-1.02); GLOMERULAR FILTRATION RATE > 60.0 (>45); GLUCOSE, FASTING 115 MG/DL (80-110); POTASSIUM SERUM 3.4 MEQ/L (3.5-5.1); SODIUM LEVEL 141 MEQ/L (136-145)
[2017-01-14 06:00] VITALS: BP 142/86
[2017-01-14 08:00] VITALS: BP 140/70
[2017-01-14] MEDS: SENOKOT S TAB PO SCH ×2 (09:00→20:33)
[2017-01-14] MEDS: FERROUS SULFATE 325MG TAB PO SCH ×2 (09:00→20:34)
[2017-01-14] MEDS: LOSARTAN 50 MG TAB PO SCH (09:38)
[2017-01-14] MEDS: **hydrALAZINE** 50 MG TAB PO SCH ×3 (09:38→20:34)
[2017-01-14] MEDS: amLODIPine 10 MG TAB PO SCH ×2 (09:38→20:35)
[2017-01-14] MEDS: METOPROLOL TART 25 MG TABLET PO SCH ×2 (09:39→20:36)
--- NOTE | 2017-01-14 09:40 | IPNPDOC ---
Date Seen The patient was seen on 01/14/17. Progress Note SUBJECTIVE: Patient is a 61 year-old female admitted on 01/10 with symptomatic anemia. Pt resting comfortably at the time of assessment. Patient is scheduled for a colonoscopy and EGD today. The patient has been NPO since midnight. Pt has no complaints this morning. Per nursing, pt had one episode of elevated BP this AM in the 200's systolic but patient denies having symptoms of high blood pressure. Denied headaches, light headiness, change in vision. Since then bp has been stable. OBJECTIVE PHYSICAL EXAMINATION: VITAL SIGNS: Please see below. GENERAL: Pleasant elderly lady sitting comfortable in no acute distress. CARDIOVASCULAR: S1 and S2 present. No rubs, murmurs, or gallops appreciated. RESPIRATORY: Clear to auscultate bilateral. no rhonchi, gallops or rubs noted. EXTREMITIES: 2+ edema up to mid calf on right. Left edema has improved. PSYCHOLOGICAL: appropriate affect LABORATORY DATA: Please see below. MICROBIOLOGY: Please see below. DVT prophylaxis ordered?: patient is ambulatory and avoiding anticoagulation due to positive fecal occult blood. Pending EGD/colonoscopy. ASSESSMENT AND PLAN: This is a 61 year-old female admitted with symptomatic anemia s/p transfusion 4 units of PRBC PROBLEMS: 1. Symptomatic Anemia: H/H stable. s/p 4 units of packed red blood cells transfusion.. Current H/H are stable. Dr. Montague will be performing the EGD and Colonoscopy today. Currently on iron supplementation. 2. Hypertension: Pt currently on Amlodipine 10 mg BID PO, Clonidine 0.2 mg BID PO, Hydralazine 50 mg TID PO, Losartan 100 mg Daily PO, and Metoprolol 25 mg BID PO. Pt was initially given Isosorbide dinitrate, however d/c due to headache. Blood pressure is currently stable, will continue to monitor. 3. Hypokalemia: Ordered Potassium Chloride 40 mEql one time for the evening with meal. Mg currently at 2.0, will continue to monitor . 4. Congestive Heart Failure: Echo on 01/13 showed left atrium enlargement, normal left ventricular size with moderate left ventricular hypertrophy (LVH) and preserved LV systolic function, estimated ejection fraction 65-70%. Grade 1 diastolic dysfunction. Peripheral edema is improving on physical exam. Will continue Lasix 40mg q6h for diuresis. 5. Back pain: no complaints this AM. Patient has Flexeril 5mg prn for spasms. 6. DVT prophylaxis: patient is ambulatory and avoiding anticoagulation due to positive fecal occult blood. Pending EGD/colonoscopy. 7. All PO medication but blood pressure medication to be held today because of patient NPO status, can resume medication once EGD and colonoscopy is completed. VS, I&O, 24H, Fishbone Vital Signs/I&O Vital Signs Date Time Temp Pulse Resp B/P (MAP) Pulse Ox O2 Delivery O2 Flow Rate FiO2 01/14/17 08:06 Room Air 01/14/17 08:00 99.0 69 18 140/70 (93) 97 I&O- Last 24 Hours up to 6 AM 01/14/17 06:00 Intake Total 1800 ml Output Total 3750 ml Balance -1950 ml Laboratory Data 24H LABS Laboratory Tests 2 01/14/17 04:49: Anion Gap 5L, Glomerular Filtration Rate > 60.0, Blood Urea Nitrogen 7, Creatinine 0.61, Sodium Level 141, Potassium Level 3.4L, Chloride Level 101, Carbon Dioxide Level 35H, Calcium Level 8.9, Magnesium Level 2.0 CBC/BMP Laboratory Tests 01/14/17 04:49 Red Blood Count 4.79, Mean Corpuscular Volume 69.2 L, Mean Corpuscular Hemoglobin 20.2 L, Mean Corpuscular Hemoglobin Concent 29.2 L, Red Cell Distribution Width 26.0 H, Calcium Level 8.9 Microbiology Microbiology 01/11/17 Stool Occult Blood (RADHA) - Final, Complete MARIANNE SNWO DO Jan 14, 2017 09:09
[2017-01-14] MEDS: cloNIDine 0.2 MG TAB PO SCH ×2 (10:44→20:35)
[2017-01-14] MEDS ORDERED: SLF 3 ML SYR IV PRN (10:45)
--- NOTE | 2017-01-14 10:49 | CR.PDOC ---
General Surgery Consultation Date of Consultation 01/13/17 History and Physical CONSULT REPORT FOR: Dr. Mami Jose REASON FOR CONSULTATION: symptomatic anemia for endoscopy HISTORY OF PRESENT ILLNESS: Ms. Dotson is 61 year old female admitted to the hospital for symptomatic anemia. She was complaining of shortness of breath, bilateral leg swelling and found to have a hemoglobin of 5.6. She has chronic iron deficiency anemia treated with iron which she had stopped on her own. She has never had a colonoscopy or upper endoscopy. She denies noting any blood on her stools, change in caliber of her stools, change in bowel habits. She denies any significant family history for colon cancer. PAST MEDICAL HISTORY: 1. anemia PAST SURGICAL HISTORY: INCLUDES: 1. incarcerated ventral hernia repair with small bowel resection 2. Repair of incarcerated recurrent ventral hernia 3. Left knee surgery 4. 2 sections PREVIOUS ANESTHESIA REACTIONS: none ALLERGIES: Please see below. FAMILY HISTORY: Denies significant family history of gi tract malignancy. HOME MEDICATIONS: Please see below. REVIEW OF SYSTEMS: GENERAL: Denies chills, reports weight gain, denies fevers or chills. HEENT: Denies blurred vision and double vision. Denies ear symptoms. Denies hoarseness. NECK: Denies any neck pain. CARDIOVASCULAR: Reports shortness of breath, easy fatigability, Swelling MUSCULOSKELETAL: Denies arthralgias, back pain and thrombophlebitis. SKIN: Denies rash. NEUROLOGIC: Denies headache, stroke and transient ischemic attack. PSYCHIATRIC: Denies anxiety and depression. ENDOCRINE: Denies thyroid disease. HEMATOLOGY/ONCOLOGY: Denies bleeding or clotting disorder. HEART: Reports some mild chest pain, dyspnea and effort PULMONARY: Denies chronic cough, and wheezing. GASTROINTESTINAL: Denies rectal bleeding, family history of colon cancer, constipation, diarrhea, dysphagia, heartburn and jaundice. GENITOURINARY: Denies dysuria, frequency, hematuria and nocturia. ENDOCRINE: Denies polydipsia, polyphagia, polyuria, heat or cold intolerance. INFECTIOUS: Denies any recent upper respiratory tract infection, UTI, need for use of antibiotics. NUTRITION: Reports good appetite. PHYSICAL EXAMINATION: VITALS SIGNS: Please see below. GENERAL APPEARANCE:Patient seen, laying in bed, awake, alert, and oriented. Comfortable, in no acute distress. SKIN: Warm and moist. HEENT: Normocephalic, atraumatic. [place] palpebral conjunctiva, anicteric sclerae. Lips and mucosa appear moist. NECK: Supple, no thyromegaly. No obvious jugular venous distention. LUNGS: Clear to auscultation bilaterally. No wheezing appreciated. HEART: No chest wall abnormalities. Regular rate and rhythm with no murmurs appreciated. ABDOMEN: Abdomen is , obese soft, nondistended . She appears to have recurrence of her ventral hernia on the upper abdomen but this is reducible. Nontender and palpation EXTREMITIES: Extremities have no deformities. No edema identified ANCILLARIES: . LABORATORY DATA: Please see below. IMAGING STUDIES: . IMPRESSION AND PLAN: . Symptomatic anemia Patient will be scheduled for upper endoscopy and colonoscopy during his admission. Plan the do a bowel prep tonight and endoscopy tomorrow. Details of the procedure, risks and benefits have been described to the patient and consent has been obtained. Vital Signs Vital Signs Date Time Temp Pulse Resp B/P (MAP) Pulse Ox O2 Delivery O2 Flow Rate FiO2 01/13/17 12:00 98.3 83 18 121/62 (81) 95 Room Air I&Os I&O- Last 24 Hours up to 6 AM 01/13/17 05:59 Intake Total 1560 ml Output Total 2300 ml Balance -740 ml Laboratory Data Labs 24H Laboratory Tests 2 01/13/17 05:07: Anion Gap 8, Glomerular Filtration Rate > 60.0, Blood Urea Nitrogen 13, Creatinine 0.61, Sodium Level 142, Potassium Level 3.5, Chloride Level 102, Carbon Dioxide Level 32, Calcium Level 8.9, Magnesium Level 2.0 CBC/BMP Laboratory Tests 01/13/17 05:07 Red Blood Count 4.57, Mean Corpuscular Volume 66.9 L, Mean Corpuscular Hemoglobin 20.5 L, Mean Corpuscular Hemoglobin Concent 30.6 L, Red Cell Distribution Width 24.7 H, Calcium Level 8.9 Microbiology Microbiology 01/11/17 Stool Occult Blood (RADHA) - Final, Complete Home Medications Scheduled Amlodipine Besylate (Amlodipine Besylate) 10 Mg Tab, 10 MG PO DAILY, (Reported) Aspirin (Aspirin) 325 Mg Tab, 325 MG PO DAILY, (Reported) Clonidine Hydrochloride (Clonidine HCl) 0.2 Mg Tab, 0.2 MG PO QHS, (Reported) Folic Acid (Folic Acid) 1 Mg Tab, 1 MG PO DAILY, (Reported) Hydrochlorothiazide (Hydrochlorothiazide) 25 Mg Tab, 25 MG PO DAILY, (Reported) Losartan Potassium (Losartan Potassium) 100 Mg Tab, 100 MG PO DAILY, (Reported) Metoprolol Tartrate (Metoprolol Tartrate) 50 Mg Tab, 50 MG PO DAILY, (Reported) Scheduled PRN Ranitidine HCl (Ranitidine HCl) 150 Mg Tab, 1 TAB PO DAILY PRN for HEARTBURN, ( Reported) Allergies Coded Allergies: Penicillins (Verified Allergy, Unknown, 01/10/17) Penicillins Cross Reactors (Verified Allergy, Unknown, 01/10/17) Exline (Verified Allergy, Unknown, 01/10/17) MONAE OTTO MD Jan 13, 2017 15:56
[2017-01-14 12:00] VITALS: BP 130/64
[2017-01-14] MEDS ORDERED: PROPOFOL 200 MG/20 ML VIAL As Ordered ONE ×2 (15:09→15:30)
[2017-01-14] MEDS ORDERED: LIDOCAINE 2% INJ 100 MG/5 ML SDV (FOR ANES.) As Ordered ONE (15:09)
[2017-01-14] MEDS ORDERED: fentaNYL 100 MCG/2 ML INJECTION (J3010) As Ordered ONE (15:09)
[2017-01-14] MEDS ORDERED: ePHEDrine SULFATE 25 MG/5 ML(5MG/ML) SYRINGE As Ordered ONE (15:26)
--- NOTE | 2017-01-14 15:53 | ROOR ---
Patient Name: Freda Cartwright Procedure Date: 01/14/2017 2:16 PM Date of : 1955 Age: 61 Gender: Female Note Status: Finalized Procedure: Upper GI endoscopy Indications: Iron deficiency anemia secondary to chronic blood loss, Iron deficiency anemia Providers: Marcellus Montague MD Referring MD: Marquez Dorsey MD Requesting Provider: Medicines: Monitored Anesthesia Care Complications: No immediate complications. Procedure: Pre-Anesthesia Assessment: - Prior to the procedure, a History and Physical was performed, and patient medications and allergies were reviewed. The patient is competent. The risks and benefits of the procedure and the sedation options and risks were discussed with the patient. All questions were answered and informed consent was obtained. Patient identification and proposed procedure were verified by the physician, the nurse and the title search manager in the procedure room. Mental Status Examination: alert and oriented. Airway Examination: normal oropharyngeal airway and neck mobility. Respiratory Examination: clear to auscultation. CV Examination: normal. Prophylactic Antibiotics: The patient does not require prophylactic antibiotics. Prior Anticoagulants: The patient has taken aspirin, last dose was 1 day prior to procedure. ASA Grade Assessment: III - A patient with severe systemic disease. After reviewing the risks and benefits, the patient was deemed in satisfactory condition to undergo the procedure. The anesthesia plan was to use monitored anesthesia care (MAC). Immediately prior to administration of medications, the patient was re-assessed for adequacy to receive sedatives. The heart rate, respiratory rate, oxygen saturations, blood pressure, adequacy of pulmonary ventilation, and response to care were monitored throughout the procedure. The physical status of the patient was re-assessed after the procedure. The Endoscope was introduced through the mouth, and advanced to the third part of duodenum. The upper GI endoscopy was accomplished without difficulty. The patient tolerated the procedure well. Findings: The examined esophagus was normal. The Z-line was regular and was found 43 cm from the incisors. Striped mildly erythematous mucosa without bleeding was found in the gastric antrum. This was biopsied with a cold forceps for Helicobacter pylori testing. Estimated blood loss was minimal. The third portion of the duodenum was normal. Impression: - Normal esophagus. - Z-line regular, 43 cm from the incisors. - Erythematous mucosa in the antrum. Biopsied. - Normal third portion of the duodenum. Recommendation: - Admit the patient to hospital [facility] for ongoing care. Marcellus Montague MD Marcellus Montague MD 01/14/2017 3:52:50 PM This report has been signed electronically. Number of Addenda: 0 Note Initiated On: 01/14/2017 2:16 PM Estimated Blood Loss: Estimated blood loss was minimal.
--- NOTE | 2017-01-14 16:01 | ROOR ---
Patient Name: Freda Cartwright Procedure Date: 01/14/2017 2:13 PM Date of : 1955 Age: 61 Gender: Female Note Status: Finalized Procedure: Colonoscopy Indications: Iron deficiency anemia Providers: Marcellus Montague MD Referring MD: Mami Jose Md, Marquez Dorsey Requesting Provider: Medicines: Monitored Anesthesia Care Complications: No immediate complications. Procedure: Pre-Anesthesia Assessment: - Prior to the procedure, a History and Physical was performed, and patient medications and allergies were reviewed. The patient is competent. The risks and benefits of the procedure and the sedation options and risks were discussed with the patient. All questions were answered and informed consent was obtained. Patient identification and proposed procedure were verified by the physician, the nurse and the sales audit clerk in the procedure room. Mental Status Examination: alert and oriented. Airway Examination: normal oropharyngeal airway and neck mobility. Respiratory Examination: clear to auscultation. CV Examination: normal. Prophylactic Antibiotics: The patient does not require prophylactic antibiotics. Prior Anticoagulants: The patient has taken aspirin, last dose was day of procedure. ASA Grade Assessment: III - A patient with severe systemic disease. After reviewing the risks and benefits, the patient was deemed in satisfactory condition to undergo the procedure. The anesthesia plan was to use monitored anesthesia care (MAC). Immediately prior to administration of medications, the patient was re-assessed for adequacy to receive sedatives. The heart rate, respiratory rate, oxygen saturations, blood pressure, adequacy of pulmonary ventilation, and response to care were monitored throughout the procedure. The physical status of the patient was re-assessed after the procedure. The Colonoscope was introduced through the anus and advanced to the terminal ileum, with identification of the appendiceal orifice and IC valve. The colonoscopy was technically difficult and complex due to a tortuous colon and the patient's body habitus. Successful completion of the procedure was aided by using manual pressure. The patient tolerated the procedure well. The quality of the bowel preparation was good. Findings: The perianal and digital rectal examinations were normal. The colon (entire examined portion) appeared normal. The terminal ileum appeared normal. Biopsies were taken with a cold forceps for histology. Biopsies for histology were taken with a cold forceps for evaluation of celiac disease. Estimated blood loss was minimal. No visible stigmata of recent bleed, significant diverticulosis, inflammation No additional abnormalities were found on retroflexion. Impression: - The entire examined colon is normal. - The examined portion of the ileum was normal. Biopsied. Recommendation: - Admit the patient to hospital [facility] for ongoing care. - To visualize the small bowel, perform video capsule endoscopy at appointment to be scheduled. Marcellus Montague MD Marcellus Montague MD 01/14/2017 4:00:38 PM This report has been signed electronically. Number of Addenda: 0 Note Initiated On: 01/14/2017 2:13 PM Estimated Blood Loss: Estimated blood loss was minimal.
[2017-01-14 16:30] VITALS: BP 120/80
[2017-01-14] MEDS: ASPIRIN ENTERIC 325 MG TAB PO SCH (16:51)
[2017-01-14] MEDS: FOLIC ACID 1 MG TAB PO SCH (16:51)
[2017-01-14] MEDS: ASCORBIC ACID 500 MG TAB PO SCH ×2 (16:52→20:34)
[2017-01-14] MEDS: SLF 3 ML SYR IV SCH ×2 (16:52→20:36)
[2017-01-14] MEDS ORDERED: POTASSIUM CHLORIDE 10 MEQ SR TABLET PO ONE (18:00)
[2017-01-14 23:10] VITALS: BP 152/70
[2017-01-15] MEDS: FUROSEMIDE 40 MG/4 ML VIAL (J1940) IV SCH ×2 (00:19→05:13)
[2017-01-15] MEDS: SLF 3 ML SYR IV SCH ×2 (05:14→14:00)
[2017-01-15 06:00] VITALS: BP 145/71
[2017-01-15 06:57] LABS: MEAN CORPUSCULAR HEMOGLOBIN 20.5 pg (27.0-33.0); MEAN CORPUSCULAR HGB CONC 29.7 g/dl (32.0-36.5); MEAN CORPUSCULAR VOLUME 69.1 fl (80.0-96.0); WHITE BLOOD COUNT 7.6 K/mm3 (4.0-10.0)
[2017-01-15 07:09] LABS: ANION GAP 3 MEQ/L (8-16); BLOOD UREA NITROGEN 11 MG/DL (7-18); CARBON DIOXIDE LEVEL 35 MEQ/L (21-32); CHLORIDE LEVEL 100 MEQ/L (98-107); GLOMERULAR FILTRATION RATE > 60.0 (>45); GLUCOSE, FASTING 128 MG/DL (80-110); POTASSIUM SERUM 3.7 MEQ/L (3.5-5.1); SODIUM LEVEL 138 MEQ/L (136-145)
[2017-01-15] MEDS: amLODIPine 10 MG TAB PO SCH (09:19)
[2017-01-15] MEDS: LOSARTAN 50 MG TAB PO SCH (09:19)
[2017-01-15] MEDS: ASPIRIN ENTERIC 325 MG TAB PO SCH (09:19)
[2017-01-15] MEDS: METOPROLOL TART 25 MG TABLET PO SCH (09:20)
[2017-01-15] MEDS: FOLIC ACID 1 MG TAB PO SCH (09:20)
[2017-01-15] MEDS: ASCORBIC ACID 500 MG TAB PO SCH (09:20)
[2017-01-15] MEDS: cloNIDine 0.2 MG TAB PO SCH (09:20)
[2017-01-15] MEDS: FERROUS SULFATE 325MG TAB PO SCH (09:20)
[2017-01-15] MEDS: SENOKOT S TAB PO SCH (09:20)
[2017-01-15 09:21] VITALS: BP 138/71
[2017-01-15] MEDS: **hydrALAZINE** 50 MG TAB PO SCH (09:21)
[2017-01-15] MEDS ORDERED: FERR1TAB8 PO (12:21)
[2017-01-15] MEDS ORDERED: AMLO10TA2 PO (12:21)
[2017-01-15] MEDS ORDERED: HYDR50TA PO (12:21)
[2017-01-15] MEDS ORDERED: METO25TA4 PO (12:21)
[2017-01-15] MEDS ORDERED: VITA500T PO (12:21)
[2017-01-15] MEDS ORDERED: CATA0.2T PO (12:21)
[2017-01-15] MEDS ORDERED: LOSA50TA20 PO (12:21)
--- NOTE | 2017-01-15 16:32 | DS.PDOC ---
Discharge Summary General Date of Admission Jan 10, 2017 at 17:30 Date of Discharge Jan 15, 2017 Primary Care Physician: CHERYL DORSEY M.D. Discharge Summary PROCEDURES PERFORMED DURING STAY: Colonoscopy and EGD 01/14/17 Colonoscopy - The entire examined colon is normal. - The examined portion of the ileum was normal. Biopsied. Recommendation: - Admit the patient to [facility] for ongoing care. - To visualize the small bowel, perform video capsule endoscopy at appointment to be scheduled. 01/14/17 EGD - Normal esophagus. - Z-line regular, 43 cm from the incisors. - Erythematous mucosa in the antrum. Biopsied. - Normal third portion of the duodenum. Recommendation: - Admit the patient to hospital [facility] for ongoing care. ADMITTING DIAGNOSES: 1. Anemia 2. High-output congestive heart failure 3. Nonsustained ventricular tachycardia. DISCHARGE DIAGNOSES: 1. Anemia 2. Hypertension COMPLICATIONS/CHIEF COMPLAINT: Anemia;Chest Pain. 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 She had checked her stool for occult blood through pharmacy programs and when it was negative felt she did not need her iron. She presented to the emergency room with dyspnea on exertion that has been getting gradually worse over a period of time. 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 She presented to the emergency room for evaluation and was found to have a hemoglobin of 5.6. She has been chronically anemic, and her last hemoglobin was 8.7 with iron deficient indices April of 2013. She has not had any endoscopy. She has a history of hypertension. She is intermittently compliant with her medications. I get the sense she has been taking them more recently since blood pressure is under loose control. Most recent systolic blood pressure has been in 160 range. She has evidence by exam, lab, and x-ray of congestive heart failure today, probably high-output heart failure. Most recent echocardiogram was from 6 years ago. She was on Dr. Petersen's service June 2010. Echocardiogram showed left ventricular hypertrophy (LVH), 75% ejection fraction, dilated left atrium, 46 mm. She denied increased right-sided pressure 6 years ago. She does have symptoms consistent with sleep apnea and snoring and excessive somnolence as well as a body habitus consistent with sleep apnea. HOSPITAL COURSE: Day of admission : admitted to the progressive care unit (PCU) , transfused 2 units packed red blood cells in the ER. Echocardiogram has been ordered. Intravenous ( IV) Lasix on sliding scale to maintain a net diuresis of 1200 mL per day. Daily labs have been ordered. Hypertension, noncompliant with her usual medications. She is a bit bradycardic. She has a relatively high dose angiotensin receptor martínez (ARB) medication. Thiazide is held in order to give her intravenous Lasix. Oral iron has been ordered with vitamin C to enhance absorption. Day 2 Symptomatic anemia: No current source of bleeding identified. Stool for occult blood has been ordered. Transfused a total 4 units of PRBC since admission. Iron studies indicate iron deficiency anemia. Ferrous sulfate has been added to patient's medication regimen. Consulted general surgery. Peripheral smear indicates "post-transfusion sample. Still shows severe iron-deficiency anemia with increase reticulocytes count and rare nucleated RBCs, worrisome for occult blood loss as a cause of her anemia. For Uncontrolled hypertension: Patient was on Amlodipine 10mg twice a day, Hydralazine 50mg three times a day, and Losartan 100mg daily. Obtained renal ultrasound. Hypokalemia and Hypomagnesemia: Replenishment provided. Chest pain: Cardiac markers have thus far been negative. Congestive heart failure: BNP within optimal range. Obtaining echocardiogram. Administering Lasix for a net negative balance of 1200cc/day. Day 3 Acute low back muscle spasms: Attained symptomatic relief with Flexeril 5mg. Symptomatic anemia: H/H is stable Stool is positive for occult blood. No rico blood loss appreciated by patient. Consulted general surgery. For Uncontrolled hypertension, Patient remains on Clonidine and Metoprolol with hold parameters of SBP < 110 and/or HR < 60. Patient is also on Amlodipine 10mg twice a day, Hydralazine 50mg three times a day, Losartan 100mg daily, and have initiated Isosorbide dinitrate 30mg every 8 hours. Hopeful to achieve a more controlled blood pressure with the regimen. Will continue to monitor. Congestive heart failure: Remains on Lasix 40mg every six hours for a net negative balance of 1200cc/day. Day 4: 1. Symptomatic anemia with iron deficiency. Last colonoscopy [address] Montague has been consulted for esophagogastroduodenoscopy (EGD)/colonoscopy.Iron supplementation.Hypokalemia. Supplemented. Continue to monitor. Uncontrolled hypertension. Clonidine 0.2 mg by mouth twice a day. Lopressor with holding parameter. Norvasc, hydralazine, losartan have been given. Isosorbide dinitrate has been discontinued given headache Congestive heart failure, Continue Lasix for diuresis. Deep venous thrombosis (DVT) prophylaxis Avoided pharmacological agents for anticoagulation given patient is fecal occult positive pending esophagogastroduodenoscopy (EGD)/colonoscopy. Day [address] Dr[address] Montague performed EGD and Colonoscopy today. Currently on ironsupplementation. Hypertension: Blood pressure is currently stable, will continue to monitor. Hypokalemia: Ordered Potassium Chloride 40 mEql one time for the evening with meal. Mg currently at 2.0, will continue to monitor. All PO medication but blood pressure medication to be held today because of patient NPO status, can resume medication once EGD and colonoscopy is completed. DISCHARGE MEDICATIONS: Please see below. ALLERGIES: Please see below. PHYSICAL EXAMINATION ON DISCHARGE: VITAL SIGNS: Please see below. GENERAL: Pleasant elderly lady sitting comfortable in no acute distress. CARDIOVASCULAR EXAMINATION: S1 and S2 present. No rubs, murmurs, or gallops appreciated. RESPIRATORY EXAMINATION: Clear to auscultate bilateral. no rhonchi, gallops or rubs noted. ABDOMINAL EXAMINATION: Large Habitus, positive bowl sounds, no tenderness on palpitation EXTREMITIES: No peripheral edema appreciated bilaterally. LABORATORY DATA: Please see below. IMAGIN01/10/17 Chest, 2 view PA, Lat Cardiomegaly. Cannot exclude interstitial edema/pulmonary vascular congestion. Minimal basilar atelectasis. 01/10/17 Duplex, Ext LOWER veins, bilat Negative bilateral lower extremity duplex venous ultrasound. No evidence of deep vein thrombosis. 01/12/17 RENAL US 1. Kidneys demonstrate a 1.7 cm right renal cyst and suspected mild left renal hydronephrosis. 2. No definite, direct evidence for renal arterial stenosis. Elevation of the intrarenal resistive indices and acceleration times are nonspecific findings which may warrant further investigation including nuclear medicine renal function testing. 01/14/17 Colonoscopy - The entire examined colon is normal. - The examined portion of the ileum was normal. Biopsied. Recommendation: - Admit the patient to hospital [facility] for ongoing care. - To visualize the small bowel, perform video capsule endoscopy at appointment to be scheduled. 01/14/17 EGD - Normal esophagus. - Z-line regular, 43 cm from the incisors. - Erythematous mucosa in the antrum. Biopsied. - Normal third portion of the duodenum. Recommendation: - Admit the patient to hospital [facility] for ongoing care. ACTIVITY: As tolerated, can return to work on Sunday 01/21 DIET: Regular Diet DISCHARGE PLAN: 1. Symptomatic Anemia: H/H stable. s/p 4 units of packed red blood cells transfusion.. Current H/H are stable. Dr. Montague performed the EGD and Colonoscopy on 01/14. They both were negative, will discharge the patient on iron supplementation. Iterated the importance of being complaint with medication and taking it with Vitamin C to aid in the absorption, states she understands. 2. Hypertension: Pt currently on Amlodipine 10 mg BID PO, Clonidine 0.2 mg BID PO, Hydralazine 50 mg TID PO, Losartan 100 mg Daily PO, and Metoprolol 25 mg BID PO. Pt was initially given Isosorbide dinitrate, however d/c due to headache. Blood pressure is currently stable, will discharge the patient on these medication and follow up with PCP in 1 wk. 3. Hypokalemia: Currently stable. Patient will follow up with PCP , who can repeat chemistry and assess if patient needs senior living management of [facility]. 4. Congestive Heart Failure: Echo on 01/13 showed left atrium enlargement, normal left ventricular size with moderate left ventricular hypertrophy LVH) and preserved LV systolic function, estimated ejection fraction 65-70%. Grade 1 diastolic dysfunction. Peripheral edema is improving on physical exam. DISCHARGE INSTRUCTIONS: 1. Follow up with PCP in 7 days. 2. respiratory supervisor new scripts from Pharmacy DISCHARGE CONDITION: Stable TIME SPENT ON DISCHARGE: Greater than 30 minutes. Vital Signs/I&Os Vital Signs Date Time Temp Pulse Resp B/P (MAP) Pulse Ox O2 Delivery O2 Flow Rate FiO2 01/15/17 09:21 138/71 01/15/17 09:20 72 01/15/17 06:00 97.2 20 95 01/14/17 23:10 Room Air 01/14/17 23:10 I&O- Last 24 Hours up to 6 AM 01/15/17 06:00 Intake Total 1590 ml Output Total 2650 ml Balance -1060 ml Laboratory Data Labs 24H Laboratory Tests 2 01/15/17 06:39: Anion Gap 3L, Glomerular Filtration Rate > 60.0, Blood Urea Nitrogen 11#, Creatinine 0.70, Sodium Level 138, Potassium Level 3.7, Chloride Level 100, Carbon Dioxide Level 35H, Calcium Level 9.0, Magnesium Level 2.0 CBC/BMP Laboratory Tests 01/15/17 06:39 Red Blood Count 4.88, Mean Corpuscular Volume 69.1 L, Mean Corpuscular Hemoglobin 20.5 L, Mean Corpuscular Hemoglobin Concent 29.7 L, Red Cell Distribution Width 27.0 H, Calcium Level 9.0 Microbiology Microbiology 01/11/17 Stool Occult Blood (RADHA) - Final, Complete Discharge Medications Scheduled Amlodipine Besylate (Amlodipine Besylate) 10 Mg Tab, 10 MG PO BID Ascorbic Acid (Vitamin C) 500 Mg Tab, 500 MG PO BID Aspirin (Aspirin) 325 Mg Tab, 325 MG PO DAILY, (Reported) Clonidine Hydrochloride (Catapres) 0.2 Mg Tab, 0.2 MG PO BID Ferrous Sulfate (Ferrous Sulfate) 325 Mg Tab, 325 MG PO BID Folic Acid (Folic Acid) 1 Mg Tab, 1 MG PO DAILY, (Reported) Hydralazine HCl (Hydralazine HCl) 50 Mg Tab, 50 MG PO TID Losartan Potassium (Losartan Potassium) 50 Mg Tab, 100 MG PO DAILY Metoprolol Tartrate (Metoprolol Tartrate) 25 Mg Tab, 25 MG PO BID Scheduled PRN Ranitidine HCl (Ranitidine HCl) 150 Mg Tab, 1 TAB PO DAILY PRN for HEARTBURN, ( Reported) Allergies Coded Allergies: Penicillins (Verified Allergy, Unknown, 01/10/17) Penicillins Cross Reactors (Verified Allergy, Unknown, 01/10/17) [place] (Verified Allergy, Unknown, 01/10/17) MARIANNE SNOW DO Jan 15, 2017 10:35
== END 2017-01-15 15:20 | disposition home or self-care (01) | DRG 812 ==
LOC: M ED 15:05 → M ED INP 17:30 → M PCU 01-11 20:19 → M MSPAV 01-14 23:10
PROVIDERS: ADMIT Family Medicine; ATTEND Internal Medicine
PROC: 30233N1 Transfusion of Nonautologous Red Blood Cells into Peripheral Vein, Percutaneous Approach (ICD-10-PCS; principal; 2017-01-10)
PROC: 0DB68ZX Excision of Stomach, Via Natural or Artificial Opening Endoscopic, Diagnostic (ICD-10-PCS; 2017-01-14)
PROC: 0DBB8ZX Excision of Ileum, Via Natural or Artificial Opening Endoscopic, Diagnostic (ICD-10-PCS; 2017-01-14)
DX: D50.0 Iron deficiency anemia secondary to blood loss (chronic) (principal); I47.2 Ventricular tachycardia; I11.9 Hypertensive heart disease without heart failure; G47.30 Sleep apnea, unspecified; E87.6 Hypokalemia; E83.42 Hypomagnesemia; N28.1 Cyst of kidney, acquired; I50.9 Heart failure, unspecified; Z79.899 Other long term (current) drug therapy; Z88.0 Allergy status to penicillin; Z91.010 Allergy to peanuts; K21.9 Gastro-esophageal reflux disease without esophagitis; Z91.19 Patient's noncompliance with other medical treatment and regimen; M62.838 Other muscle spasm

== ENCOUNTER → 2019-01-11 | Outpatient (REF) | payer OTHER ==
[~2019-01-11] MED LIST changes: +AMLO10TA5 PO; +ASPI-1 PO; +CATA0.2T PO; +CLON0.2T PO; +FERR1TAB8 PO; +FOLI1TAB11 PO; +HYDR12.55 PO; +HYDR25TAB PO; +HYDR50TA PO; +LOSA100T50 PO; +LOSA50TA88 PO; +METO25TA4 PO; +METO50TA7 PO; +RANI150T PO; +VITA500T PO
[2019-01-11 19:16] LABS: HEMATOCRIT 35.9 % (36.0-47.0); HEMOGLOBIN 10.8 g/dl (12.0-15.5); MEAN CORPUSCULAR HEMOGLOBIN 25.8 pg (27.0-33.0); MEAN CORPUSCULAR HGB CONC 30.1 g/dl (32.0-36.5); MEAN CORPUSCULAR VOLUME 85.9 fl (80.0-96.0); PLATELET COUNT, AUTOMATED 326 10^3/uL (150-450); RED BLOOD COUNT 4.18 10^6/uL (4.00-5.40); WHITE BLOOD COUNT 9.9 10^3/uL (4.0-10.0)
[2019-01-11 19:24] LABS: ALBUMIN 3.4 GM/DL (3.2-5.2); ALT/SGPT 20 U/L (12-78); BILIRUBIN,TOTAL 0.2 MG/DL (0.2-1.0); BLOOD UREA NITROGEN 12 MG/DL (7-18); CALCIUM LEVEL 9.7 MG/DL (8.8-10.2); CARBON DIOXIDE LEVEL 30 MEQ/L (21-32); CHLORIDE LEVEL 106 MEQ/L (98-107); CREATININE FOR GFR 0.66 MG/DL (0.55-1.30); FERRITIN 18 NG/ML (8-252); GLOMERULAR FILTRATION RATE > 60.0 (>45); GLUCOSE, FASTING 91 MG/DL (70-100); IRON (FE) 326 UG/DL (50-170); PERCENT SATURATION 93.4 % (13.2-45.0); POTASSIUM SERUM 4.2 MEQ/L (3.5-5.1); SODIUM LEVEL 142 MEQ/L (136-145); TOTAL IRON BINDING CAPACITY 349 UG/DL (250-450); TOTAL PROTEIN 6.7 GM/DL (6.4-8.2)
== END ==
LOC: M SFHCLERA 15:46
PROVIDERS: ATTEND Physician Assistant
DX: D50.9 Iron deficiency anemia, unspecified (principal)

== ENCOUNTER 2023-07-21 12:23 | Inpatient (IN) | payer OTHER ==
[2023-07-21] VITALS (16 sets, daily range): BP systolic 149–208; BP diastolic 72–95; TEMP 96.6–98.6; O2SAT 2–99
[~2023-07-21] VITALS: Ht 160 cm; Wt 121.9 kg
[~2023-07-21 12:23] MED LIST changes: -AMLO10TA5 PO; +AMLO1TAB25 PO; +HYDR-3490 PO; -HYDR25TAB PO; -HYDR50TA PO; +HYDR50TA47 PO; +LOSA100T46 PO; -LOSA100T50 PO; +LOSA50TA28 PO; -LOSA50TA88 PO; +VITA-243 PO; -VITA500T PO
[2023-07-21 13:27] LABS: BASO # 0.1 10^3/uL (0.0-0.2); BASO % 0.6 % (0.0-1.0); EOS # 0.2 10^3/uL (0.0-0.5); EOS % 2.3 % (0.0-3.0); HEMATOCRIT 24.4 % (36.0-47.0); LYMPH # 1.3 10^3/uL (1.5-5.0); LYMPH % 15.3 % (24.0-44.0); MEAN CORPUSCULAR HEMOGLOBIN 18.5 pg (27.0-33.0); MEAN CORPUSCULAR HGB CONC 26.2 g/dl (32.0-36.5); MEAN CORPUSCULAR VOLUME 70.5 fl (80.0-96.0); MONO # 0.5 10^3/uL (0.0-0.8); MONO % 5.7 % (2.0-8.0); NEUTROPHILS # 6.6 10^3/uL (1.5-8.5); NEUTROPHILS % 75.4 % (36.0-66.0); PLATELET COUNT, AUTOMATED 313 10^3/uL (150-450); RED BLOOD COUNT 3.46 10^6/uL (4.00-5.40); WHITE BLOOD COUNT 8.7 10^3/uL (4.0-10.0)
[2023-07-21 13:31] LABS: HEMOGLOBIN 6.4 g/dl (12.0-15.5)
[2023-07-21 13:54] LABS: IRON (FE) 8 UG/DL (50-170); PERCENT SATURATION 2.3 % (13.2-45.0); TOTAL IRON BINDING CAPACITY 353 UG/DL (250-425)
[2023-07-21 13:55] LABS: ALBUMIN 2.9 G/DL (3.2-5.2); ALKALINE PHOSPHATASE 73 U/L (46-116); ALT/SGPT 18 U/L (7.0-40); AST/SGOT 13 U/L (<34); BILIRUBIN,DIRECT 0.2 MG/DL (<0.4); BILIRUBIN,TOTAL 0.5 MG/DL (0.3-1.2); BLOOD UREA NITROGEN 9 MG/DL (9-23); CALCIUM LEVEL 9.7 MG/DL (8.3-10.6); CARBON DIOXIDE LEVEL 33 MMOL/L (20-31); CHLORIDE LEVEL 106 MMOL/L (98-107); CPK CREATINE PHOSPHOKINASE 46 U/L (34-145); CREATININE FOR GFR 0.57 MG/DL (0.55-1.30); GLOMERULAR FILTRATION RATE > 60.0 (>45); GLUCOSE, FASTING 164 MG/DL (74-106); MB/CK RELATIVE INDEX 4.34 (< OR =4); POTASSIUM SERUM 4.1 MMOL/L (3.5-5.1); SODIUM LEVEL 142 MMOL/L (136-145); TOTAL PROTEIN 5.9 G/DL (5.7-8.2)
[2023-07-21 13:56] LABS: THYROID STIMULATING HORMONE 2.831 uIU/ML (0.55-4.78); THYROXINE (T4) 7.7 UG/DL (4.5-10.9)
[2023-07-21 14:01] LABS: RSV AMPLIFICATION NEGATIVE (NEGATIVE)
[2023-07-21] MEDS ORDERED: MED REC IN PROGRESS XX SCH (14:30)
[2023-07-21] MEDS: PANTOPRAZOLE 40MG VIAL IV ONE (14:35)
[2023-07-21] MEDS: FUROSEMIDE 40MG/4ML VIAL IV ONE (14:35)
[2023-07-21] MEDS: SUCRALFATE 1 GM TAB PO ONE (14:35)
[2023-07-21] MEDS ORDERED: ARTIDRO4 OU (14:52)
[2023-07-21] MEDS ORDERED: VITA500C24 PO (14:52)
[2023-07-21] MEDS ORDERED: FERR325T3 PO (14:52)
[2023-07-21] MEDS ORDERED: NAPR220C23 PO (14:52)
[2023-07-21] MEDS ORDERED: MAGN400C2 PO (14:52)
[2023-07-21] MEDS ORDERED: LOSA100T46 PO (14:52)
[2023-07-21] MEDS ORDERED: HOME MED LIST COMPLETE! XX SCH (14:55)
[2023-07-21 14:56] LABS: CK-MB VALUE MASS 2.2 NG/ML (<3.6)
[2023-07-21] MEDS: ACETAMINOPHEN TAB 650MG DOSE (2X325MG) PO ONE (15:20)
[2023-07-21] MEDS: NITROGLYCERIN 2% OINT 1 GM *U/D* PKT TOP ONE (15:21)
[2023-07-21] MEDS ORDERED: hydrALAZINE 20MG/ML 1ML VIAL As Ordered ONE (16:16)
[2023-07-21] MEDS: hydrALAZINE 20MG/ML 1ML VIAL IV ONE (16:19)
[2023-07-21] MEDS: FUROSEMIDE 20MG/2ML VIAL IV ONE (16:25)
[2023-07-21 16:36] LABS: CHOLESTEROL LEVEL 109 MG/DL (<200); CHOLESTEROL RISK RATIO 2.88 (<5); HDL CHOLESTEROL 37.8 MG/DL (>40); LDL CHOLESTEROL 56.8 MG/DL (<100); NON-HDL-C 71.2 MG/DL; TRIGLYCERIDES LEVEL 72 MG/DL (<150)
[2023-07-21 16:54] LABS: INR 1.25; PARTIAL THROMBOPLASTIN TIME 29.5 SECONDS (24.8-34.2); PROTHROMBIN TIME 15.3 SECONDS (12.5-14.5)
[2023-07-21] MEDS ORDERED: methylPREDNISolone 125MG 2ML VIAL IV ONE (17:40)
[2023-07-21] MEDS ORDERED: LABETALOL 100MG/20ML VIAL IV STA (17:55)
[2023-07-21] MEDS: IPRATROPIUM 0.5MG/ALBUTEROL 2.5MG INH SOL UD 3ML (DUONEB) NEB STA (17:57)
[2023-07-21] MEDS: BUDESONIDE 0.5 MG/2 ML INHALATION SUSPENSION NEB STA (18:05)
[2023-07-21] MEDS: FUROSEMIDE 40MG/4ML VIAL IV STA (18:08)
[2023-07-21] MEDS: LABETALOL 100MG/20ML VIAL IV STA (18:08)
[2023-07-21] MEDS: MORPHINE 2 MG/ML 1ML VIAL IV STA (18:11)
[2023-07-21 18:30] LABS: CK-MB VALUE MASS 2.5 NG/ML (<3.6)
[2023-07-21 18:31] LABS: CPK CREATINE PHOSPHOKINASE 66 U/L (34-145); MB/CK RELATIVE INDEX 3.78 (< OR =4)
[2023-07-21 18:35] LABS: ALBUMIN 3.4 G/DL (3.2-5.2); ALKALINE PHOSPHATASE 89 U/L (46-116); ALT/SGPT 20 U/L (7.0-40); AST/SGOT 12 U/L (<34); BILIRUBIN,TOTAL 1.5 MG/DL (0.3-1.2); BLOOD UREA NITROGEN 8 MG/DL (9-23); CALCIUM LEVEL 10.2 MG/DL (8.3-10.6); CARBON DIOXIDE LEVEL 34 MMOL/L (20-31); CHLORIDE LEVEL 106 MMOL/L (98-107); GLOMERULAR FILTRATION RATE > 60.0 (>45); GLUCOSE, FASTING 149 MG/DL (74-106); MAGNESIUM LEVEL 1.7 MG/DL (1.8-2.4); PHOSPHORUS LEVEL 2.7 MG/DL (2.4-5.1); POTASSIUM SERUM 4.1 MMOL/L (3.5-5.1); SODIUM LEVEL 142 MMOL/L (136-145); TOTAL PROTEIN 6.7 G/DL (5.7-8.2)
[2023-07-21] MEDS: LOSARTAN 50MG TABLET PO SCH (19:05)
[2023-07-21] MEDS: MAG SULF 1GM/100ML (MAG RUN) 1 GM in IV 1 EA IV ONE (20:05)
[2023-07-21] MEDS: METOPROLOL TART 25 MG TABLET PO SCH (21:00)
[2023-07-21] MEDS: **hydrALAZINE HCL** 25 MG TAB PO SCH (21:00)
[2023-07-21] MEDS: ACETAMINOPHEN TAB 650MG DOSE (2X325MG) PO PRN (23:32)
[2023-07-22] VITALS (24 sets, daily range): BP systolic 136–188; BP diastolic 64–86; TEMP 97.7–99.9; O2SAT 91–99
[2023-07-22] MEDS: LORazepam 0.5 MG TAB PO ONE (00:03)
[2023-07-22 01:15] LABS: HEMATOCRIT 29.3 % (36.0-47.0); HEMOGLOBIN 8.2 g/dl (12.0-15.5); MEAN CORPUSCULAR HEMOGLOBIN 19.9 pg (27.0-33.0); MEAN CORPUSCULAR VOLUME 71.1 fl (80.0-96.0); PLATELET COUNT, AUTOMATED 306 10^3/uL (150-450); RED BLOOD COUNT 4.12 10^6/uL (4.00-5.40)
[2023-07-22 01:45] LABS: BLOOD UREA NITROGEN 8 MG/DL (9-23); CALCIUM LEVEL 9.7 MG/DL (8.3-10.6); CARBON DIOXIDE LEVEL 36 MMOL/L (20-31); CHLORIDE LEVEL 101 MMOL/L (98-107); CREATININE FOR GFR 0.61 MG/DL (0.55-1.30); GLOMERULAR FILTRATION RATE > 60.0 (>45); GLUCOSE, FASTING 140 MG/DL (74-106); POTASSIUM SERUM 3.8 MMOL/L (3.5-5.1); SODIUM LEVEL 140 MMOL/L (136-145)
[2023-07-22] MEDS: hydrALAZINE 20MG/ML 1ML VIAL IV PRN (02:42)
[2023-07-22] MEDS: IPRATROPIUM 0.5MG/ALBUTEROL 2.5MG INH SOL UD 3ML (DUONEB) NEB PRN (03:00)
[2023-07-22] MEDS: PANTOPRAZOLE 40MG VIAL IV SCH (03:09)
[2023-07-22 06:18] LABS: HEMATOCRIT 33.3 % (36.0-47.0); HEMOGLOBIN 9.1 g/dl (12.0-15.5); MEAN CORPUSCULAR HEMOGLOBIN 19.7 pg (27.0-33.0); MEAN CORPUSCULAR HGB CONC 27.3 g/dl (32.0-36.5); MEAN CORPUSCULAR VOLUME 72.1 fl (80.0-96.0); PLATELET COUNT, AUTOMATED 318 10^3/uL (150-450); RED BLOOD COUNT 4.62 10^6/uL (4.00-5.40); WHITE BLOOD COUNT 10.5 10^3/uL (4.0-10.0)
[2023-07-22 06:39] LABS: ALBUMIN 3.3 G/DL (3.2-5.2); ALKALINE PHOSPHATASE 87 U/L (46-116); ALT/SGPT 19 U/L (7.0-40); AST/SGOT 13 U/L (<34); BILIRUBIN,TOTAL 1.2 MG/DL (0.3-1.2); BLOOD UREA NITROGEN 9 MG/DL (9-23); CALCIUM LEVEL 10.3 MG/DL (8.3-10.6); CARBON DIOXIDE LEVEL 34 MMOL/L (20-31); CHLORIDE LEVEL 104 MMOL/L (98-107); CREATININE FOR GFR 0.68 MG/DL (0.55-1.30); GLOMERULAR FILTRATION RATE > 60.0 (>45); GLUCOSE, FASTING 130 MG/DL (74-106); SODIUM LEVEL 142 MMOL/L (136-145); TOTAL PROTEIN 6.6 G/DL (5.7-8.2)
[2023-07-22 07:49] LABS: MAGNESIUM LEVEL 1.8 MG/DL (1.8-2.4); POTASSIUM SERUM 3.9 MMOL/L (3.5-5.1)
[2023-07-22] MEDS: methylPREDNISolone 125MG 2ML VIAL IV SCH (09:30)
[2023-07-22] MEDS: **hydrALAZINE** 50 MG TAB PO SCH (09:31)
[2023-07-22] MEDS: FUROSEMIDE 40MG/4ML VIAL IV SCH (09:31)
[2023-07-22] MEDS: MORPHINE 2 MG/ML 1ML VIAL IV PRN (10:39)
[2023-07-23] VITALS (26 sets, daily range): BP systolic 152–174; BP diastolic 74–81; TEMP 97.2–98.6; O2SAT 89–97
[2023-07-23 05:32] LABS: HEMATOCRIT 30.3 % (36.0-47.0); HEMOGLOBIN 8.3 g/dl (12.0-15.5); MEAN CORPUSCULAR HEMOGLOBIN 19.7 pg (27.0-33.0); MEAN CORPUSCULAR HGB CONC 27.4 g/dl (32.0-36.5); PLATELET COUNT, AUTOMATED 312 10^3/uL (150-450); RED BLOOD COUNT 4.21 10^6/uL (4.00-5.40); WHITE BLOOD COUNT 8.3 10^3/uL (4.0-10.0)
[2023-07-23 06:05] LABS: ALKALINE PHOSPHATASE 75 U/L (46-116); ALT/SGPT 14 U/L (7.0-40); AST/SGOT < 8 U/L (<34); BILIRUBIN,TOTAL 0.7 MG/DL (0.3-1.2); BLOOD UREA NITROGEN 15 MG/DL (9-23); CALCIUM LEVEL 10.5 MG/DL (8.3-10.6); CARBON DIOXIDE LEVEL 36 MMOL/L (20-31); CHLORIDE LEVEL 103 MMOL/L (98-107); CREATININE FOR GFR 0.63 MG/DL (0.55-1.30); GLOMERULAR FILTRATION RATE > 60.0 (>45); GLUCOSE, FASTING 199 MG/DL (74-106); SODIUM LEVEL 139 MMOL/L (136-145); TOTAL PROTEIN 6.1 G/DL (5.7-8.2)
[2023-07-23] MEDS ORDERED: E-Z-GAS II EFFERVESCENT PACKET (SODIUM BICARB./CITRIC ACID/SIMETHICONE) As Ordered ONE (08:05)
[2023-07-23] MEDS ORDERED: E-Z-HD 98% w/w 340GM SUSP BTL As Ordered ONE (08:05)
[2023-07-23] MEDS ORDERED: E-Z-PAQUE 96% w/w SUSP 176GM BTL As Ordered ONE (08:05)
[2023-07-23] MEDS: SUCRALFATE 1 GM TAB PO SCH (08:50)
[2023-07-23 12:06] LABS: HEMATOCRIT 33.8 % (36.0-47.0); HEMOGLOBIN 9.3 g/dl (12.0-15.5)
[2023-07-23] MEDS: FERRIC CARBOXYMALTOSE INJ 750 MG, VIAL MATE ADAPTER 1 EACH in NS 250 ML IV ONE (22:19)
[2023-07-24] VITALS (32 sets, daily range): BP systolic 130–178; BP diastolic 61–84; TEMP 96.9–99; O2SAT 88–99
[2023-07-24 05:45] LABS: HEMATOCRIT 30.9 % (36.0-47.0); HEMOGLOBIN 8.5 g/dl (12.0-15.5); MEAN CORPUSCULAR HGB CONC 27.5 g/dl (32.0-36.5); MEAN CORPUSCULAR VOLUME 72.9 fl (80.0-96.0); PLATELET COUNT, AUTOMATED 322 10^3/uL (150-450); RED BLOOD COUNT 4.24 10^6/uL (4.00-5.40); WHITE BLOOD COUNT 12.5 10^3/uL (4.0-10.0)
[2023-07-24 06:22] LABS: ALBUMIN 2.9 G/DL (3.2-5.2); ALKALINE PHOSPHATASE 67 U/L (46-116); ALT/SGPT 15 U/L (7.0-40); AST/SGOT 8 U/L (<34); BILIRUBIN,TOTAL 0.6 MG/DL (0.3-1.2); BLOOD UREA NITROGEN 24 MG/DL (9-23); CALCIUM LEVEL 10.8 MG/DL (8.3-10.6); CARBON DIOXIDE LEVEL > 40.0 MMOL/L (20-31); CHLORIDE LEVEL 100 MMOL/L (98-107); CREATININE FOR GFR 0.74 MG/DL (0.55-1.30); GLOMERULAR FILTRATION RATE > 60.0 (>45); GLUCOSE, FASTING 123 MG/DL (74-106); POTASSIUM SERUM 3.6 MMOL/L (3.5-5.1); SODIUM LEVEL 142 MMOL/L (136-145); TOTAL PROTEIN 5.9 G/DL (5.7-8.2)
[2023-07-24] MEDS: BISACODYL 5MG TAB PO SCH (09:04)
[2023-07-24] MEDS: SENOKOT S TAB PO SCH (09:04)
[2023-07-24] MEDS: **hydrALAZINE** 50 MG TAB PO SCH (09:05)
[2023-07-24] MEDS: LOSARTAN 50MG TABLET PO SCH (09:06)
[2023-07-25] VITALS (10 sets, daily range): BP systolic 109–160; BP diastolic 51–74; TEMP 97.8–99; O2SAT 88–94
[2023-07-25 05:34] LABS: BASO % 0.4 % (0.0-1.0); EOS # 0.2 10^3/uL (0.0-0.5); EOS % 2.2 % (0.0-3.0); HEMATOCRIT 30.2 % (36.0-47.0); HEMOGLOBIN 8.2 g/dl (12.0-15.5); LYMPH # 0.8 10^3/uL (1.5-5.0); LYMPH % 8.5 % (24.0-44.0); MEAN CORPUSCULAR HEMOGLOBIN 19.5 pg (27.0-33.0); MEAN CORPUSCULAR HGB CONC 27.2 g/dl (32.0-36.5); MEAN CORPUSCULAR VOLUME 71.9 fl (80.0-96.0); MONO # 0.9 10^3/uL (0.0-0.8); MONO % 9.2 % (2.0-8.0); NEUTROPHILS # 7.9 10^3/uL (1.5-8.5); NEUTROPHILS % 79.3 % (36.0-66.0); PLATELET COUNT, AUTOMATED 277 10^3/uL (150-450); WHITE BLOOD COUNT 9.9 10^3/uL (4.0-10.0)
[2023-07-25 07:27] LABS: BLOOD UREA NITROGEN 27 MG/DL (9-23); CALCIUM LEVEL 10.5 MG/DL (8.3-10.6); CARBON DIOXIDE LEVEL 40 MMOL/L (20-31); CHLORIDE LEVEL 98 MMOL/L (98-107); GLOMERULAR FILTRATION RATE > 60.0 (>45); GLUCOSE, FASTING 141 MG/DL (74-106); POTASSIUM SERUM 3.3 MMOL/L (3.5-5.1); SODIUM LEVEL 138 MMOL/L (136-145)
[2023-07-25] MEDS: POTASSIUM CHLORIDE 10MEQ SR TABLET PO SCH (09:10)
[2023-07-25] MEDS: POTASSIUM CHLORIDE 10MEQ SR TABLET PO ONE (11:39)
[2023-07-25] MEDS ORDERED: HYDR50TA46 PO (14:12)
[2023-07-25] MEDS ORDERED: LOSA-528 PO (14:12)
[2023-07-25] MEDS ORDERED: IPRA0.00 NEB (14:12)
[2023-07-25] MEDS ORDERED: AMLO1TAB25 PO (14:12)
[2023-07-25] MEDS ORDERED: SUCR1TA PO (14:13)
[2023-07-25] MEDS ORDERED: METO1TAB87 PO (14:13)
[2023-07-25] MEDS ORDERED: POTA-136 PO (14:13)
[2023-07-25 15:01] LABS: BLOOD UREA NITROGEN 22 MG/DL (9-23); CALCIUM LEVEL 10.7 MG/DL (8.3-10.6); CARBON DIOXIDE LEVEL 40 MMOL/L (20-31); CHLORIDE LEVEL 96 MMOL/L (98-107); CREATININE FOR GFR 0.66 MG/DL (0.55-1.30); GLOMERULAR FILTRATION RATE > 60.0 (>45); GLUCOSE, FASTING 133 MG/DL (74-106); POTASSIUM SERUM 3.5 MMOL/L (3.5-5.1); SODIUM LEVEL 138 MMOL/L (136-145)
[2023-07-25] MEDS ORDERED: LASI40TA9 PO (15:18)
[2023-07-25] MEDS ORDERED: HYDR100T PO (15:36)
[2023-07-25] MEDS ORDERED: ALBU8.5H INH (15:39)
[2023-07-25] MEDS ORDERED: NEBU1EAC78 MC (15:41)
[2023-07-25] MEDS ORDERED: LOSA100T46 PO (15:59)
[2023-07-25] MEDS ORDERED: NYST1POW9 TOP (16:00)
[2023-07-26] MEDS ORDERED: POTA-298 PO (08:47)
== END 2023-07-25 16:36 | disposition home or self-care (01) | DRG 811 ==
LOC: M ED 12:23 → M ED INP 16:21 → M PCU 19:25
PROVIDERS: ADMIT Internal Medicine; ATTEND Internal Medicine
PROC: 30233N1 Transfusion of Nonautologous Red Blood Cells into Peripheral Vein, Percutaneous Approach (ICD-10-PCS; principal; 2023-07-21)
PROC: B246ZZZ Ultrasonography of Right and Left Heart (ICD-10-PCS; 2023-07-22)
DX: D50.9 Iron deficiency anemia, unspecified (principal); I50.33 Acute on chronic diastolic (congestive) heart failure; J96.01 Acute respiratory failure with hypoxia; K92.2 Gastrointestinal hemorrhage, unspecified; B96.20 Unspecified Escherichia coli [E. coli] as the cause of diseases classified elsewhere; I11.0 Hypertensive heart disease with heart failure; I16.0 Hypertensive urgency; R06.03 Acute respiratory distress; F41.9 Anxiety disorder, unspecified; K21.9 Gastro-esophageal reflux disease without esophagitis; E66.01 Morbid (severe) obesity due to excess calories; R32 Unspecified urinary incontinence; Z79.899 Other long term (current) drug therapy; Z88.0 Allergy status to penicillin; Z91.018 Allergy to other foods; Z11.52 Encounter for screening for COVID-19

== ENCOUNTER → 2023-09-18 | Day surgery (SDC) | payer OTHER ==
[~2023-09-18] VITALS: Ht 160 cm; Wt 120.2 kg
[~2023-09-18] MED LIST changes: +ALBU8.5H INH; +ARTIDRO4 OU; +FERR325T3 PO; +HYDR100T PO; +HYDR50TA46 PO; +IPRA0.00 NEB; +LASI40TA9 PO; +LOSA-528 PO; +MAGN400C2 PO; +METF-838 PO; +METO1TAB87 PO; +MIRA3350 PO; +MM S100C PO; +NAPR220C23 PO; +NEBU1EAC78 MC; +NS 1,000 ML IV ONE; +NYST1POW9 TOP; +PANT20TA6 PO; +POTA-136 PO; +POTA-298 PO; +SUCR1TA PO; +VITA500C24 PO; +fentaNYL 100 MCG/2 ML INJECTION As Ordered ONE
[2023-09-18 09:43] VITALS: BP 218/101; TEMP 98; O2SAT 95
== END | disposition home or self-care (01) ==
LOC: M OPP 09:40
PROVIDERS: ATTEND Surgery
DX: Z53.9 Procedure and treatment not carried out, unspecified reason (principal)

== ENCOUNTER → 2024-11-17 | Outpatient (CLI) | payer OTHER ==
[~2024-11-17] MED LIST changes: +CEPH500C PO; +COQ1200C3 PO; +CYCL5TAB4 PO; +FLON1SPR NARES; +IPRA0.00 INH; +ISOVUE-370 76% 100 ML VIAL As Ordered ONE; +JARD1TAB3 PO; +MAGN400T33 PO; -NS 1,000 ML IV ONE; +NYST1POW3 TOP; -NYST1POW9 TOP; +PHOS1TAB3 PO; +SUCR1TAB56 PO; +VITA100093 PO; -fentaNYL 100 MCG/2 ML INJECTION As Ordered ONE
== END ==
LOC: M RAD 15:50
PROVIDERS: ATTEND Otolaryngology
DX: E21.0 Primary hyperparathyroidism (principal); E04.1 Nontoxic single thyroid nodule
CPT/HCPCS: 70492; Q9967

== ENCOUNTER → 2025-01-01 | Outpatient (CLI) | payer OTHER ==
[~2025-01-01] MED LIST changes: -ISOVUE-370 76% 100 ML VIAL As Ordered ONE
[2025-01-01 12:48] LABS: CALCIUM LEVEL 10.8 MG/DL (8.3-10.6); CARBON DIOXIDE LEVEL 30 MMOL/L (20-31); CHLORIDE LEVEL 105 MMOL/L (98-107); CREATININE FOR GFR 0.70 MG/DL (0.55-1.30); GLOMERULAR FILTRATION RATE > 90.0 (>45); MAGNESIUM LEVEL 2.0 MG/DL (1.8-2.4); PHOSPHORUS LEVEL 3.1 MG/DL (2.4-5.1); POTASSIUM SERUM 4.3 MMOL/L (3.5-5.1); PTH INTACT 165.1 PG/ML (18.5-88.0); SODIUM LEVEL 144 MMOL/L (136-145)
[2025-01-01 12:49] LABS: TOTAL 25(OH) VITAMIN D 63.5 NG/ML (20.0-100.0)
== END ==
LOC: M WUC 10:10
PROVIDERS: ATTEND Nurse Practitioner Family
DX: E83.52 Hypercalcemia (principal)

== ENCOUNTER → 2025-01-01 | Outpatient (CLI) | payer OTHER | LOC: M WUC 10:12 | PROVIDERS: ATTEND Otolaryngology | DX: E21.0 Primary hyperparathyroidism (principal) ==

== ENCOUNTER → 2025-01-01 | Outpatient (CLI) | payer OTHER ==
[2025-01-01 12:48] LABS: BASO # 0.0 10^3/uL (0.0-0.2); BASO % 0.5 % (0.0-1.0); EOS # 0.3 10^3/uL (0.0-0.5); EOS % 4.6 % (0.0-3.0); LYMPH # 1.2 10^3/uL (1.5-5.0); LYMPH % 18.3 % (24.0-44.0); MONO # 0.5 10^3/uL (0.0-0.8); MONO % 7.3 % (2.0-8.0); NEUTROPHILS # 4.3 10^3/uL (1.5-8.5); NEUTROPHILS % 69.0 % (36.0-66.0); PLATELET COUNT, AUTOMATED 331 10^3/uL (150-450)
[2025-01-01 12:50] LABS: ALT/SGPT 15 U/L (7.0-40); AST/SGOT 14 U/L (<34); CALCIUM LEVEL 10.6 MG/DL (8.3-10.6); CARBON DIOXIDE LEVEL 29 MMOL/L (20-31); CHLORIDE LEVEL 105 MMOL/L (98-107); CHOLESTEROL LEVEL 154 MG/DL (<200); CHOLESTEROL RISK RATIO 2.71 (<5); CREATININE FOR GFR 0.70 MG/DL (0.55-1.30); GLOMERULAR FILTRATION RATE > 90.0 (>45); IRON (FE) 19 UG/DL (50-170); LDL CHOLESTEROL 81.7 MG/DL (<100); NON-HDL-C 97.3 MG/DL; PERCENT SATURATION 6.1 % (13.2-45.0); POTASSIUM SERUM 4.4 MMOL/L (3.5-5.1); SODIUM LEVEL 145 MMOL/L (136-145); TRIGLYCERIDES LEVEL 78 MG/DL (<150)
[2025-01-01 12:51] LABS: FREE T4 1.22 NG/DL (0.89-1.76)
[2025-01-01 12:55] LABS: ESTIMATED AVERAGE GLUCOSE 123.0 MG/DL (60-110)
== END ==
LOC: M WUC 10:08
DX: D50.9 Iron deficiency anemia, unspecified (principal); I11.0 Hypertensive heart disease with heart failure; I50.30 Unspecified diastolic (congestive) heart failure; E11.9 Type 2 diabetes mellitus without complications; R32 Unspecified urinary incontinence

== ENCOUNTER 2025-03-10 13:12 | Outpatient (CLI) | payer OTHER ==
[~2025-03-10] VITALS: Ht 157.5 cm; Wt 100.0 kg
[~2025-03-10 13:12] MED LIST changes: +ALBUTEROL SULFATE 2.5 MG/0.5 ML INH CONCENTRATE NEB SOLN INH PRN; +EPINEPHrine INJ 1 MG/ML 1ML AMP IM PRN; +diphenhydrAMINE 50 MG/ML VIAL IV PRN
[2025-03-10 13:20] VITALS: BP 155/72; O2SAT 92
[2025-03-10] MEDS: FERRIC CARBOXYMALTOSE 750 MG (VIAL MATE) IN 100ML NS IV ONE (13:27)
[2025-03-10 14:25] VITALS: BP 167/74; O2SAT 93
== END 2025-03-10 14:25 | disposition home or self-care (01) ==
LOC: M INFU 13:12
DX: E83.10 Disorder of iron metabolism, unspecified (principal); Z88.0 Allergy status to penicillin
CPT/HCPCS: 96365; J1439

== ENCOUNTER 2025-03-17 13:19 | Outpatient (CLI) | payer OTHER ==
[~2025-03-17] VITALS: Ht 160 cm; Wt 100.0 kg
[2025-03-17 13:43] VITALS: BP 162/80; O2SAT 97
[2025-03-17] MEDS: FERRIC CARBOXYMALTOSE 750 MG (VIAL MATE) IN 100ML NS IV ONE (14:05)
[2025-03-17 14:47] VITALS: BP 172/85; O2SAT 93
== END 2025-03-17 14:50 | disposition home or self-care (01) ==
LOC: M INFU 13:19
DX: E83.10 Disorder of iron metabolism, unspecified (principal); Z88.0 Allergy status to penicillin; Z91.018 Allergy to other foods; Z91.09 Other allergy status, other than to drugs and biological substances
CPT/HCPCS: 96365; J1439